=== PATIENT | male | born 1950 | race Caucasian/White ===

== ENCOUNTER 2017-10-09 13:06 | Emergency (ER) | payer MEDICARE ==
[2017-10-09 13:28] VITALS: BP 138/87; PULSE 87; RESP 20; TEMP 97.5
--- NOTE | 2017-10-09 13:42 | ED ---
Lower Extremity Injury HPI - General Chief Complaint: Extremity Injury, Lower Stated Complaint: fall, rt ankle injury Time Seen by Provider: 10/09/17 13:33 Source: patient, family, RN notes reviewed Mode of arrival: wheelchair Limitations: no limitations - History of Present Illness Initial Comments: This is a 67-year-old male who presents to the emergency department with chief complaint of right ankle injury. Patient is accompanied by family members who contribute to history as patient does have a speech issue. They state that they were at [employer] earlier this morning. Patient was trying to get onto a motorized cart in the parking lot and twisted his right ankle and fell down. Patient was able to get up off the ground on his own. He was able to bear weight at first but then when he returned home it became difficult to bear weight and ambulate on the right ankle. Patient denies any other injuries or trauma. He does normally use a walker to ambulate. Denies recent fevers or chills, chest pain or shortness of breath, abdominal pain, nausea or vomiting, headache or dizziness. - Related Data Home Medications Medication Instructions Recorded Confirmed Atorvastatin [Lipitor] 20 mg PO DAILY 06/18/15 06/19/15 Cinnamon Bark [Cinnamon] 500 mg PO DAILY 06/18/15 06/19/15 Paron-3 Fatty Acids/Fish Oil [Fish 1 cap PO DAILY 06/18/15 06/19/15 Oil 1,000 mg Softgel] Previous Rx's Medication Instructions Recorded Amoxic-Pot Clav 875-125Mg 1 tab PO Q12HR #14 tablet 06/22/15 [Augmentin 875-125] Allergies Allergy/AdvReac Type Severity Reaction Status Date / Time No Known Allergies Allergy Verified 10/09/17 13:23 Review of Systems ROS Statement: Those systems with pertinent positive or pertinent negative responses have been documented in the HPI. ROS Other: All systems not noted in ROS Statement are negative. 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), very mild strokes, possible mild [place] (unknown when) History of Any Multi-Drug Resistant Organisms: None Reported Past Surgical History: Heart Catheterization With Stent Additional Past Surgical History / Comment(s): Dr Kumar did stent approx 8 years ago Past Anesthesia/Blood Transfusion Reactions: No Reported Reaction Date of Last Stent Placement:: 2007 Past Psychological History: No Psychological Hx Reported Smoking Status: Never smoker Past Alcohol Use History: None Reported Past Drug Use History: None Reported - Past Family History Father Family Medical History: Unable to Obtain General Exam - General Exam Comments Initial Comments: General: Awake and alert, well-developed; in no apparent distress. HEENT: Head atraumatic, normocephalic. Pupils are equal, round and reactive to light. Extraocular movements intact. Oropharynx moist without erythema or exudate. Poor dentition throughout. Neck: Supple. Normal ROM. Cardiovascular: Regular rate and rhythm. No murmurs, rubs or gallops. Chest symmetrical. Respiratory: Lungs clear to auscultation bilaterally. No wheezes, rales or rhonchi. Normal respiratory effort with no use of accessory muscles. Musculoskeletal: Normal range of motion of the right ankle, however pain is elicited with plantar flexion. Tenderness on palpation at lateral ankle with mild soft tissue swelling. Sensation is intact. Pedal pulses are 2+ equal and palpable bilaterally. Skin: [place], warm and dry without rashes. Chronic hyperpigmentation noted to the right foot. Neurological: Alert and oriented x3. CN II-XII grossly intact. No focal neuro deficits. affect. No overt signs of depression or anxiety noted. Limitations: no limitations Course Vital Signs 10/09/17 13:23 Temperature 97.5 F L Pulse Rate 87 Respiratory 20 Rate Blood Pressure 138/87 O2 Sat by Pulse 94 L Oximetry Medical Decision Making - Medical Decision Making This is a 67-year-old male who presents to the emergency department with chief complaint of right ankle injury. There is tenderness and soft tissue swelling noted at the lateral right ankle. Patient admits to difficulty bearing weight and ambulating. X-ray of the right ankle was obtained and revealed no acute abnormalities. Patient likely suffering from an acute ankle sprain. Patient provided with a air cast. Tolerated well without complication. He is neurovascularly intact. Recommended continuing to use his walker and follow up with primary care provider. Patient will also be given contact information for orthopedics. They are in agreement with plan and voice understanding. All questions answered. Patient will be discharged home at this time. - Radiology Data Radiology results: report reviewed X-ray right ankle impression: There is no acute fracture or dislocation in the right ankle. Suspect remote injury. Disposition Clinical Impression: Ankle sprain and strain Disposition: HOME SELF-CARE Condition: Good Instructions: Ankle Sprain (ED) Additional Instructions: Please rest, ice, elevate and take Tylenol or Motrin as needed for pain. May follow up with Dr. Brewer, orthopedics if no improvement of symptoms. Please follow up with primary care provider within 1-2 days. Return to emergency department if symptoms should worsen or any concerns arise. Is patient prescribed a controlled substance at d/c from ED?: No Referrals: [facility],Clinic [Primary Care Provider] - 1-2 days Cristian Brewer MD [STAFF PHYSICIAN] - 1-2 days Time of Disposition: 14:19
--- NOTE | 2017-10-09 14:11 | XR ---
EXAMINATION TYPE: XR ankle complete RT DATE OF EXAM: 10/09/2017 CLINICAL HISTORY: Right ankle pain and swelling after twisting injury today. TECHNIQUE: Frontal, lateral and oblique images of the right ankle are obtained. COMPARISON: None. FINDINGS: There is no acute fracture/dislocation evident in the right ankle. There is well corticate d 9 mm fragment from the lateral malleolus felt to reflect old avulsion type fracture. There is spurr ing from lateral malleolus. There are small size superior and inferior calcaneal spurs. The ankle mor tise shows asymmetric medial narrowing suggesting probable ligamentous disruption likely chronic or o ld given additional chronic findings without soft tissue swelling. The overlying soft tissue appears unremarkable. IMPRESSION: There is no acute fracture or dislocation in the right ankle. Suspect remote injury.
== END 2017-10-09 14:30 | disposition home or self-care (01) ==
LOC: EC 13:06
DX: S93.401A Sprain of unspecified ligament of right ankle, initial encounter (principal); S96.911A Strain of unspecified muscle and tendon at ankle and foot level, right foot, initial encounter; Z86.73 Personal history of transient ischemic attack (TIA), and cerebral infarction without residual deficits; Z95.5 Presence of coronary angioplasty implant and graft; Z79.899 Other long term (current) drug therapy; X50.1XXA Overexertion from prolonged static or awkward postures, initial encounter; W18.39XA Other fall on same level, initial encounter; Y92.481 Parking lot as the place of occurrence of the external cause
CPT/HCPCS: 99283; 73610; L4350

== ENCOUNTER → 2018-11-30 | Outpatient (CLI) | payer OTHER | END | disposition home or self-care (01) | LOC: RADUSWWP 09:55 | DX: I73.9 Peripheral vascular disease, unspecified (principal); I25.10 Atherosclerotic heart disease of native coronary artery without angina pectoris; J44.9 Chronic obstructive pulmonary disease, unspecified; G93.9 Disorder of brain, unspecified; I10 Essential (primary) hypertension; E78.5 Hyperlipidemia, unspecified; R73.01 Impaired fasting glucose | CPT/HCPCS: 93922 ==

== ENCOUNTER 2018-12-21 16:43 | Emergency (ER) | payer OTHER ==
[2018-12-21] MEDS ORDERED: LORazepam 2 MG/ML INJ IV STA (16:58)
[2018-12-21 17:25] VITALS: RESP 18
[2018-12-21 17:27] LABS: Basophils % (A) 1 %; Eosinophils # (A) 0.3 k/uL (0-0.7); Eosinophils % (A) 4 %; HGB 14.9 gm/dL (13.0-17.5); Lymphocytes # (A) 1.2 k/uL (1.0-4.8); Lymphocytes % (A) 15 %; MCH 28.8 pg (25.0-35.0); MCHC 32.5 g/dL (31.0-37.0); MCV 88.5 fL (80.0-100.0); Mean Platelet Volume 7.7; Monocytes # (A) 0.4 k/uL (0-1.0); Monocytes % (A) 5 %; Neutrophils # (A) 5.9 k/uL (1.3-7.7); Neutrophils % (A) 73 %; Platelet Count 174 k/uL (150-450); RBC 5.19 m/uL (4.30-5.90); RDW 13.2 % (11.5-15.5)
[2018-12-21 17:35] LABS: African American GFR (CKD) >90 (>60 ml/min/1.73 sqM); Anion Gap 11 mmol/L; Blood Urea Nitrogen 22 mg/dL (9-20); Calcium 9.1 mg/dL (8.4-10.2); Carbon Dioxide 21 mmol/L (22-30); Chloride 110 mmol/L (98-107); Glucose 195 mg/dL (74-99); Potassium 4.1 mmol/L (3.5-5.1); Sodium 142 mmol/L (137-145)
[2018-12-21 17:40] LABS: Glucose,Whole Blood 188 mg/dL (75-99)
--- NOTE | 2018-12-21 18:52 | CT ---
EXAMINATION TYPE: CT brain wo con DATE OF EXAM: 12/21/2018 COMPARISON: None HISTORY: possible seizure CT DLP: 1217.4 mGycm Automated exposure control for dose reduction was used. FINDINGS: Multiple axial sections were obtained of the brain without contrast. There is cerebellar atrophy. There is no mass effect nor midline shift. There is no sign of intracran ial hemorrhage. Ventricles have normal size. Calvarium is intact. IMPRESSION: THERE IS MODERATE CEREBELLAR ATROPHY. NO ACUTE INTRACRANIAL ABNORMALITY.
[2018-12-21 19:29] LABS: Appearance,Urine Cloudy (Clear); Bilirubin,Urine Negative (Negative); Blood,Urine Negative (Negative); Color,Urine Yellow; Glucose,Urine (UA) 4+ (Negative); Hyaline Casts,Urine 15 /lpf (0-2); Ketones,Urine Negative (Negative); Leukocyte Esterase,Urine Large (Negative); Mucus,Urine Few /hpf; Nitrite,Urine Negative (Negative); PH, Urine 5.5 (5.0-8.0); Protein,Urine Trace (Negative); RBC,Urine 11 /hpf (0-5); Specific Gravity,Urine 1.023 (1.001-1.035); Urobilinogen,Urine <2.0 mg/dL (<2.0)
--- NOTE | 2018-12-21 20:15 | ED ---
Seizure HPI - General Chief Complaint: Seizure Stated Complaint: Seizure Source: patient, family Mode of arrival: EMS Limitations: altered mental status - History of Present Illness Initial Comments: The patient is a 68-year-old male with past medical history of OPCA who presents to the emergency department after he had seizure-like activity at home. The history are as reported by the patient's . She states the patient was outside riding his scooter. He then came in the house when she noted that his eyes rolled back in his head. He had full tonic-clonic jerking motions and was deviated to one side. He had an episode of incontinence. The patient did not bite his tongue. Seizure-like activity lasted for approximately 2-3 minutes. The patient wasn't post ictal. No previous seizure history in the past. called EMS. Upon EMS arrival he was alert and orientated times today which is the patient's baseline. The patient has previously seen a neurologist because of this OPCA however has not seen him in several years. The patient was initially refusing transfer but then agreed. He does arrive alert with no further seizure-like activity. He is denying any pain. He denies any headaches or visual changes. No unilateral numbness or weakness. He denies any chest pain, shortness of breath abdominal pain or changes in bowel or bladder habits. Denies any recent medication changes. No reported blunt head trauma. There are no other alleviating, precipitating or modifying factors - Related Data Home Medications Medication Instructions Recorded Confirmed Atorvastatin [Lipitor] 20 mg PO DAILY 06/18/15 12/21/18 Cinnamon Bark [Cinnamon] 500 mg PO DAILY 06/18/15 12/21/18 [place]hiss-3 Fatty Acids/Fish Oil [Fish 1 cap PO DAILY 06/18/15 12/21/18 Oil 1,000 mg Softgel] Cholecalciferol [Vitamin D3 (25 1,000 unit PO DAILY 12/21/18 12/21/18 Mcg = 1000 Iu)] Allergies Allergy/AdvReac Type Severity Reaction Status Date / Time No Known Allergies Allergy Verified 12/21/18 17:32 Review of Systems ROS Statement: Those systems with pertinent positive or pertinent negative responses have been documented in the HPI. ROS Other: All systems not noted in ROS Statement are negative. 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), very mild strokes, possible mild [place] (unknown when) History of Any Multi-Drug Resistant Organisms: None Reported Past Surgical History: Heart Catheterization With Stent Additional Past Surgical History / Comment(s): Dr Kumar did stent approx 8 years ago Past Anesthesia/Blood Transfusion Reactions: No Reported Reaction Date of Last Stent Placement:: 2007 Past Psychological History: No Psychological Hx Reported Smoking Status: Never smoker Past Alcohol Use History: None Reported Past Drug Use History: None Reported - Past Family History Father Family Medical History: Unable to Obtain General Exam Limitations: altered mental status Course Vital Signs 12/21/18 12/21/18 12/21/18 16:43 18:25 19:15 Temperature 98.4 F Pulse Rate 83 82 84 Respiratory 18 18 18 Rate Blood Pressure 120/75 120/75 128/87 O2 Sat by Pulse 95 98 97 Oximetry 12/21/18 12/21/18 19:36 20:25 Temperature 97.8 F 98 F Pulse Rate 80 75 Respiratory 18 18 Rate Blood Pressure 128/86 138/92 O2 Sat by Pulse 97 100 Oximetry Medical Decision Making - Medical Decision Making Upon arrival the patient was placed into room 18. He was hooked up to georgette nuous suction cardiac monitoring. A 12-lead EKG was performed which demonstrated normal sinus rhythm. I did recommend laboratory studies, urinalysis and a CT of the patient's brain. He was given 1 mg of Ativan IV. Upon return results are discussed with the patient is with at bedside. I did discuss diagnosis, differential and treatment options. I did indicate to them that I do believe the patient suffered a seizure at home as he did have tonic- clonic jerking motions, loss of bladder function and was post ictal. As of this I did recommend neurologic evaluation. Neurology coverage is not available at [facility] or [facility]. Did recommend transfer to [facility]. He refused hospital admission or transfer. He is capable of making his own decisions. He is of sound mind. His is at bedside and states that she cannot force him to receive medical care. The risks of leaving to include permanent disability and even . I informed him that there is a wider diagnoses been just new onset seizure. Patient understood and continued to refuse transfer. At this time the patient was discharged home and given follow-up information for neurologist. I did inform them of the importance of following up with neurology. I informed him that there is possibility he may need to be placed on antiseizure medication. The patient understood this. He was given written and verbal discharge instructions and discharged home in stable condition. - Lab Data Result diagrams: 12/21/18 17:15 12/21/18 17:15 Lab Results 12/21/18 12/21/18 12/21/18 Range/Units 17:15 17:15 17:15 WBC 8.0 (3.8-10.6) k/uL RBC 5.19 (4.30-5.90) m/uL Hgb 14.9 (13.0-17.5) gm/dL Hct 46.0 (39.0-53.0) % MCV 88.5 (80.0-100.0) fL MCH 28.8 (25.0-35.0) pg MCHC 32.5 (31.0-37.0) g/dL RDW 13.2 (11.5-15.5) % Plt Count 174 (150-450) k/uL Neutrophils % 73 % Lymphocytes % 15 % Monocytes % 5 % Eosinophils % 4 % Basophils % 1 % Neutrophils # 5.9 (1.3-7.7) k/uL Lymphocytes # 1.2 (1.0-4.8) k/uL Monocytes # 0.4 (0-1.0) k/uL Eosinophils # 0.3 (0-0.7) k/uL Basophils # 0.0 (0-0.2) k/uL Sodium 142 (137-145) mmol/L Potassium 4.1 (3.5-5.1) mmol/L Chloride 110 H (98-107) mmol/L Carbon Dioxide 21 L (22-30) mmol/L Anion Gap 11 mmol/L BUN 22 H (9-20) mg/dL Creatinine 0.97 (0.66-1.25) mg/dL Est GFR (CKD-EPI)AfAm >90 (>60 ml/min/1.73 sqM) Est GFR (CKD-EPI)NonAf 80 (>60 ml/min/1.73 sqM) Glucose 195 H (74-99) mg/dL POC Glucose (mg/dL) (75-99) mg/dL POC Glu Sales Clerk Supervisor ID Lactic Ac Sepsis Rflx Plasma Lactic Acid Garth 2.2 H* (0.7-2.0) mmol/L Calcium 9.1 (8.4-10.2) mg/dL Urine Color Urine Appearance (Clear) Urine pH (5.0-8.0) Ur Specific Parlin (1.001-1.035) Urine Protein (Negative) Urine Glucose (UA) (Negative) Urine Ketones (Negative) Urine Blood (Negative) Urine Nitrite (Negative) Urine Bilirubin (Negative) Urine Urobilinogen (<2.0) mg/dL Ur Leukocyte Esterase (Negative) Urine RBC (0-5) /hpf Urine WBC (0-5) /hpf Hyaline Casts (0-2) /lpf Urine Mucus (None) /hpf 12/21/18 12/21/18 12/21/18 Range/Units 17:37 17:40 19:00 WBC (3.8-10.6) k/uL RBC (4.30-5.90) m/uL Hgb (13.0-17.5) gm/dL Hct (39.0-53.0) % MCV (80.0-100.0) fL MCH (25.0-35.0) pg MCHC (31.0-37.0) g/dL RDW (11.5-15.5) % Plt Count (150-450) k/uL Neutrophils % % Lymphocytes % % Monocytes % % Eosinophils % % Basophils % % Neutrophils # (1.3-7.7) k/uL Lymphocytes # (1.0-4.8) k/uL Monocytes # (0-1.0) k/uL Eosinophils # (0-0.7) k/uL Basophils # (0-0.2) k/uL Sodium (137-145) mmol/L Potassium (3.5-5.1) mmol/L Chloride (98-107) mmol/L Carbon Dioxide (22-30) mmol/L Anion Gap mmol/L BUN (9-20) mg/dL Creatinine (0.66-1.25) mg/dL Est GFR (CKD-EPI)AfAm (>60 ml/min/1.73 sqM) Est GFR (CKD-EPI)NonAf (>60 ml/min/1.73 sqM) Glucose (74-99) mg/dL POC Glucose (mg/dL) 188 H (75-99) mg/dL POC Glu Sales Clerk Supervisor ID Cait Moffett Lactic Ac Sepsis Rflx Y Plasma Lactic Acid Garth (0.7-2.0) mmol/L Calcium (8.4-10.2) mg/dL Urine Color Yellow Urine Appearance Cloudy (Clear) Urine pH 5.5 (5.0-8.0) Ur Specific [place] 1.023 (1.001-1.035) Urine Protein Trace H (Negative) Urine Glucose (UA) 4+ H (Negative) Urine Ketones Negative (Negative) Urine Blood Negative (Negative) Urine Nitrite Negative (Negative) Urine Bilirubin Negative (Negative) Urine Urobilinogen <2.0 (<2.0) mg/dL Ur Leukocyte Esterase Large H (Negative) Urine RBC 11 H (0-5) /hpf Urine WBC 36 H (0-5) /hpf Hyaline Casts 15 H (0-2) /lpf Urine Mucus Few H (None) /hpf - EKG Data EKG Comments: EKG demonstrates a sinus rhythm with frequent PVCs. Ventricular rate of 83. OR interval 150. QRS V6. QTc 392. There are no acute ST segment elevations. The patient does have inverted T waves in leads 2, 3, V4 through V6. Disposition Clinical Impression: New onset seizure Disposition: HOME SELF-CARE Condition: Fair Instructions (If sedation given, give patient instructions): New-Onset Seizure in Adults (ED) Additional Instructions: I recommended hospital admission. Please return to the emergency room for any new or worsening symptoms. You will need to see a neurologist for further evaluation. Is patient prescribed a controlled substance at d/c from ED?: No Referrals: [facility],Clinic [Primary Care Provider] - 1-2 days Eric Sung MD [STAFF PHYSICIAN] - 1-2 days Time of Disposition: 20:14
[2018-12-21 20:26] VITALS: BP 138/92; PULSE 75; TEMP 98
== END 2018-12-21 20:42 | disposition home or self-care (01) ==
LOC: EC 16:43
DX: R56.9 Unspecified convulsions (principal); R41.82 Altered mental status, unspecified; I49.3 Ventricular premature depolarization; Z79.899 Other long term (current) drug therapy; Z86.73 Personal history of transient ischemic attack (TIA), and cerebral infarction without residual deficits; Z95.5 Presence of coronary angioplasty implant and graft
CPT/HCPCS: 36415; 93005; 80048; 83605; 85025; 81001; 87086; 70450; 99285; 96374; J2060; 99284

== ENCOUNTER 2018-12-23 15:37 | Inpatient (IN) | payer OTHER, MEDICARE ==
[2018-12-23] MEDS ORDERED: SODIUM CHLORIDE 0.9% 500 ML 500 ML IV STA (17:08)
[2018-12-23 17:27] LABS: Basophils % (A) 1 %; Eosinophils # (A) 0.4 k/uL (0-0.7); Eosinophils % (A) 6 %; HCT 46.7 % (39.0-53.0); HGB 15.4 gm/dL (13.0-17.5); Lymphocytes # (A) 0.9 k/uL (1.0-4.8); Lymphocytes % (A) 13 %; MCH 29.1 pg (25.0-35.0); Mean Platelet Volume 7.4; Monocytes # (A) 0.5 k/uL (0-1.0); Monocytes % (A) 8 %; Neutrophils # (A) 5.1 k/uL (1.3-7.7); Neutrophils % (A) 71 %; Platelet Count 172 k/uL (150-450); RDW 13.3 % (11.5-15.5); WBC 7.1 k/uL (3.8-10.6)
--- NOTE | 2018-12-23 17:45 | CT ---
EXAMINATION TYPE: CT brain wo con DATE OF EXAM: 12/23/2018 COMPARISON: 12/21/2018 HISTORY: Syncope. CT DLP: 1214.4 mGycm Automated exposure control for dose reduction was used. FINDINGS: There is mild cerebral atrophy. There is no mass effect nor midline shift. There is no sign of intrac ranial hemorrhage. The calvarium is intact. IMPRESSION: MILD ATROPHY. NO ACUTE INTRACRANIAL ABNORMALITY. NO CHANGE.
[2018-12-23 17:46] LABS: D-Dimer 0.35 mg/L FEU (<0.60); INR 0.9 (<1.2); Partial Thromboplastin Time 24.7 sec (22.0-30.0); Prothrombin Time 9.7 sec (9.0-12.0)
--- NOTE | 2018-12-23 17:48 | XR ---
EXAMINATION TYPE: XR chest 2V DATE OF EXAM: 12/23/2018 COMPARISON: NONE HISTORY: Syncope TECHNIQUE: Frontal and lateral views of the chest are obtained. FINDINGS: There is no heart failure nor confluent pneumonic infiltrate. Heart and mediastinum are no rmal. Bony thorax is intact. Diaphragm is normal. IMPRESSION: Normal chest
[2018-12-23 17:49] LABS: ALT 21 U/L (21-72); AST 21 U/L (17-59); African American GFR (CKD) >90 (>60 ml/min/1.73 sqM); Albumin 4.6 g/dL (3.5-5.0); Alkaline Phosphatase 101 U/L (38-126); Anion Gap 11 mmol/L; Blood Urea Nitrogen 17 mg/dL (9-20); Carbon Dioxide 25 mmol/L (22-30); Chloride 105 mmol/L (98-107); Glucose 102 mg/dL (74-99); Sodium 141 mmol/L (137-145); Total Bilirubin 0.7 mg/dL (0.2-1.3); Total Protein 7.3 g/dL (6.3-8.2)
[2018-12-23 19:13] LABS: Appearance,Urine Clear (Clear); Bilirubin,Urine Negative (Negative); Blood,Urine Negative (Negative); Color,Urine Yellow; Glucose,Urine (UA) Negative (Negative); Ketones,Urine Negative (Negative); Leukocyte Esterase,Urine Negative (Negative); Nitrite,Urine Negative (Negative); PH, Urine 5.5 (5.0-8.0); Protein,Urine Negative (Negative); Specific Gravity,Urine 1.023 (1.001-1.035); Urobilinogen,Urine <2.0 mg/dL (<2.0)
[2018-12-23] MEDS ORDERED: IPRATROPIUM-ALBUTEROL 3 ML NEB INHALATION STA (19:13)
[2018-12-23] MEDS ORDERED: NALOXONE 0.4 MG/ML 1 ML VIAL IV PRN (19:46)
--- NOTE | 2018-12-23 19:46 | ED ---
Syncope HPI - General Chief Complaint: Syncope Stated Complaint: Syncope Time Seen by Provider: 12/23/18 16:26 Source: patient, family Mode of arrival: wheelchair Limitations: no limitations - History of Present Illness Initial Comments: The patient is a 68-year-old male with past medical history of OPCA who presents emergency Department with reported episode of syncope at home. The patient was just recently seen in the emergency department on Monday. That time the patient had new onset seizure-like activity. The patient refused transfer to a facility with neurology coverage and left the hospital against medical recommendation. Reportedly today the patient had 2 syncopal episodes at home. The first was witnessed by the patient's . She states that they were sitting outside on the porch the patient went unresponsive and his scooter. She states she was only out for several seconds. There is no seizure-like activity and the patient did not bite his tongue. There is no loss of bowel or bladder incontinence. The patient had no post ictal phase. He then went into the house. Within 15 minutes of the first episode the patient ended up having a second episode of syncope that was witnessed by his son. He suffered no trauma from the syncopal episode as he slumped over in his chair. The patient's is alert at this time. He is denying any headaches or visual changes. Denies any chest pain or shortness of breath. No history of syncope. Denies any back pain or flank pain. No changes in his bowel or bladder habits. Does admit to feeling foggy at this time. He denies any abdominal pain. No unilateral numbness or weakness . There are no other alleviating, precipitating or modifying factors - Related Data Home Medications Medication Instructions Recorded Confirmed Atorvastatin [Lipitor] 20 mg PO DAILY 06/18/15 12/23/18 Ferguson-3 Fatty Acids/Fish Oil [Fish 1 cap PO DAILY 06/18/15 12/23/18 Oil 1,000 mg Softgel] Cholecalciferol [Vitamin D3 (25 1,000 unit PO DAILY 12/21/18 12/23/18 Mcg = 1000 Iu)] Cinnamon 100mg 100 mg PO DAILY 12/23/18 12/23/18 Allergies Allergy/AdvReac Type Severity Reaction Status Date / Time No Known Allergies Allergy Verified 12/23/18 17:15 Review of Systems ROS Statement: Those systems with pertinent positive or pertinent negative responses have been documented in the HPI. ROS Other: All systems not noted in ROS Statement are negative. 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), very mild strokes, possible mild [place] (unknown when) History of Any Multi-Drug Resistant Organisms: None Reported Past Surgical History: Heart Catheterization With Stent Additional Past Surgical History / Comment(s): Dr Kumar did stent approx 8 years ago Past Anesthesia/Blood Transfusion Reactions: No Reported Reaction Date of Last Stent Placement:: 2007 Past Psychological History: No Psychological Hx Reported Smoking Status: Never smoker Past Alcohol Use History: None Reported Past Drug Use History: None Reported - Past Family History Father Family Medical History: Unable to Obtain General Exam Limitations: no limitations General appearance: alert, in no apparent distress Head exam: Present: atraumatic, normocephalic, normal inspection Eye exam: Present: normal appearance, PERRL, EOMI. Absent: scleral icterus, conjunctival injection, periorbital swelling ENT exam: Present: normal exam, mucous membranes moist Neck exam: Present: normal inspection. Absent: tenderness, meningismus, lymphadenopathy Respiratory exam: Present: normal lung sounds bilaterally. Absent: respiratory distress, wheezes, rales, rhonchi, stridor Cardiovascular Exam: Present: regular rate, normal rhythm, normal heart sounds. Absent: systolic murmur, diastolic murmur, rubs, gallop, clicks GI/Abdominal exam: Present: soft, normal bowel sounds. Absent: distended, tenderness, guarding, rebound, rigid Extremities exam: Present: normal inspection, full ROM, normal capillary refill. Absent: tenderness, pedal edema, joint swelling, calf tenderness Back exam: Present: normal inspection Neurological exam: Present: alert, oriented X3, CN II-XII intact Psychiatric exam: Present: normal affect, normal mood Skin exam: Present: warm, dry, intact, normal color. Absent: rash Course Vital Signs 12/23/18 12/23/18 12/23/18 16:04 18:39 19:36 Temperature 98.3 F Pulse Rate 85 85 85 Respiratory 16 18 Rate Blood Pressure 137/85 144/92 O2 Sat by Pulse 95 95 Oximetry 12/23/18 12/23/18 12/23/18 19:46 22:30 23:00 Temperature Pulse Rate 87 87 84 Respiratory 16 16 Rate Blood Pressure 125/73 124/78 O2 Sat by Pulse 97 97 Oximetry 12/24/18 12/24/18 01:00 02:00 Temperature Pulse Rate 83 85 Respiratory 20 20 Rate Blood Pressure 125/78 129/79 O2 Sat by Pulse 97 97 Oximetry EKG Findings - EKG Comments: EKG Findings:: EKG demonstrates a normal sinus rhythm with a ventricular rate of 88. OH interval 120. QRS is 68. QTC 353. There is mild ST depression in lead 3. There are no acute ST segment elevations for ischemic changes. Medical Decision Making - Medical Decision Making The patient is placed into room 6. He is hooked up to continuous pulse ox and hospital laboratory technician. A 12-lead EKG is performed and the patient which demonstrates no acute signs of ischemia. Laboratory studies were conducted. I did send the patient over for CT of his brain due to his reported confusion. I also performed a chest x-ray. Upon return results I did discuss with the patient is family at bedside. I once again recommended admission to the hospital for which the patient did agree. He was admitted to the [facility] hospitalist group. Call discuss case with . She did accept admission of the patient. I will place Dr. Hull on consult. The patient remained on telemetry monitoring. He was reevaluated and had no further syncopal episodes. He currently awaiting transport to the floor - Lab Data Result diagrams: 12/23/18 16:52 12/23/18 16:52 Lab Results 12/23/18 12/23/18 12/23/18 Range/Units 16:52 16:52 16:52 WBC 7.1 (3.8-10.6) k/uL RBC 5.30 (4.30-5.90) m/uL Hgb 15.4 (13.0-17.5) gm/dL Hct 46.7 (39.0-53.0) % MCV 88.0 (80.0-100.0) fL MCH 29.1 (25.0-35.0) pg MCHC 33.0 (31.0-37.0) g/dL RDW 13.3 (11.5-15.5) % Plt Count 172 (150-450) k/uL Neutrophils % 71 % Lymphocytes % 13 % Monocytes % 8 % Eosinophils % 6 % Basophils % 1 % Neutrophils # 5.1 (1.3-7.7) k/uL Lymphocytes # 0.9 L (1.0-4.8) k/uL Monocytes # 0.5 (0-1.0) k/uL Eosinophils # 0.4 (0-0.7) k/uL Basophils # 0.0 (0-0.2) k/uL PT 9.7 (9.0-12.0) sec INR 0.9 (<1.2) APTT 24.7 (22.0-30.0) sec D-Dimer 0.35 (<0.60) mg/L FEU Sodium 141 (137-145) mmol/L Potassium 4.0 (3.5-5.1) mmol/L Chloride 105 (98-107) mmol/L Carbon Dioxide 25 (22-30) mmol/L Anion Gap 11 mmol/L BUN 17 (9-20) mg/dL Creatinine 0.84 (0.66-1.25) mg/dL Est GFR (CKD-EPI)AfAm >90 (>60 ml/min/1.73 sqM) Est GFR (CKD-EPI)NonAf 89 (>60 ml/min/1.73 sqM) Glucose 102 H (74-99) mg/dL Plasma Lactic Acid Garth (0.7-2.0) mmol/L Calcium 10.0 (8.4-10.2) mg/dL Total Bilirubin 0.7 (0.2-1.3) mg/dL AST 21 (17-59) U/L ALT 21 (21-72) U/L Alkaline Phosphatase 101 (38-126) U/L Troponin I (0.000-0.034) ng/mL Total Protein 7.3 (6.3-8.2) g/dL Albumin 4.6 (3.5-5.0) g/dL Urine Color Urine Appearance (Clear) Urine pH (5.0-8.0) Ur Specific [place] (1.001-1.035) Urine Protein (Negative) Urine Glucose (UA) (Negative) Urine Ketones (Negative) Urine Blood (Negative) Urine Nitrite (Negative) Urine Bilirubin (Negative) Urine Urobilinogen (<2.0) mg/dL Ur Leukocyte Esterase (Negative) 12/23/18 12/23/1819 Range/Units 16:52 16:52 18:30 WBC (3.8-10.6) k/uL RBC (4.30-5.90) m/uL Hgb (13.0-17.5) gm/dL Hct (39.0-53.0) % MCV (80.0-100.0) fL MCH (25.0-35.0) pg MCHC (31.0-37.0) g/dL RDW (11.5-15.5) % Plt Count (150-450) k/uL Neutrophils % % Lymphocytes % % Monocytes % % Eosinophils % % Basophils % % Neutrophils # (1.3-7.7) k/uL Lymphocytes # (1.0-4.8) k/uL Monocytes # (0-1.0) k/uL Eosinophils # (0-0.7) k/uL Basophils # (0-0.2) k/uL PT (9.0-12.0) sec INR (<1.2) APTT (22.0-30.0) sec D-Dimer (<0.60) mg/L FEU Sodium (137-145) mmol/L Potassium (3.5-5.1) mmol/L Chloride (98-107) mmol/L Carbon Dioxide (22-30) mmol/L Anion Gap mmol/L BUN (9-20) mg/dL Creatinine (0.66-1.25) mg/dL Est GFR (CKD-EPI)AfAm (>60 ml/min/1.73 sqM) Est GFR (CKD-EPI)NonAf (>60 ml/min/1.73 sqM) Glucose (74-99) mg/dL Plasma Lactic Acid Garth 1.1 (0.7-2.0) mmol/L Calcium (8.4-10.2) mg/dL Total Bilirubin (0.2-1.3) mg/dL AST (17-59) U/L ALT (21-72) U/L Alkaline Phosphatase (38-126) U/L Troponin I <0.012 (0.000-0.034) ng/mL Total Protein (6.3-8.2) g/dL Albumin (3.5-5.0) g/dL Urine Color Yellow Urine Appearance Clear (Clear) Urine pH 5.5 (5.0-8.0) Ur Specific [place] 1.023 (1.001-1.035) Urine Protein Negative (Negative) Urine Glucose (UA) Negative (Negative) Urine Ketones Negative (Negative) Urine Blood Negative (Negative) Urine Nitrite Negative (Negative) Urine Bilirubin Negative (Negative) Urine Urobilinogen <2.0 (<2.0) mg/dL Ur Leukocyte Esterase Negative (Negative) Disposition Clinical Impression: Syncope, Cerebellar atrophy Disposition: ADMITTED IP TO THIS HOSP Condition: Stable Is patient prescribed a controlled substance at d/c from ED?: No Decision to Admit Reason: Admit from EC Decision Date: 12/23/18 Decision Time: 19:46
[2018-12-23 22:27] LABS: Glucose,Whole Blood 114 mg/dL (75-99)
[2018-12-24] MEDS ORDERED: IPRATROPIUM-ALBUTEROL 3 ML NEB INHALATION PRN (00:38)
[2018-12-24 05:44] LABS: Basophils % (A) 0 %; Eosinophils # (A) 0.4 k/uL (0-0.7); Eosinophils % (A) 5 %; HCT 44.1 % (39.0-53.0); HGB 14.7 gm/dL (13.0-17.5); Lymphocytes # (A) 0.8 k/uL (1.0-4.8); Lymphocytes % (A) 11 %; MCH 29.6 pg (25.0-35.0); MCHC 33.3 g/dL (31.0-37.0); MCV 88.9 fL (80.0-100.0); Mean Platelet Volume 8.2; Monocytes # (A) 0.6 k/uL (0-1.0); Monocytes % (A) 8 %; Neutrophils # (A) 5.8 k/uL (1.3-7.7); Neutrophils % (A) 76 %; Platelet Count 152 k/uL (150-450); RBC 4.96 m/uL (4.30-5.90); RDW 13.4 % (11.5-15.5); WBC 7.7 k/uL (3.8-10.6)
[2018-12-24 05:51] LABS: African American GFR (CKD) >90 (>60 ml/min/1.73 sqM); Anion Gap 11 mmol/L; Blood Urea Nitrogen 17 mg/dL (9-20); Calcium 9.1 mg/dL (8.4-10.2); Carbon Dioxide 23 mmol/L (22-30); Chloride 104 mmol/L (98-107); Glucose 108 mg/dL (74-99); Sodium 138 mmol/L (137-145)
--- NOTE | 2018-12-24 07:01 | HP ---
HISTORY AND PHYSICAL DATE OF SERVICE: 12/23/2018 CHIEF COMPLAINT: Syncope. HISTORY OF PRESENT ILLNESS: This 68-year-old gentleman with a past medical history of multiple medical problems including history of asthma, CVA, TIA, history of DJD, history of OPCA, history of CAD, stent being followed by Dr. Stringer in the [facility], apparently had sustained an episode of syncope. The possibility of seizure disorder also suspected and the patient was taken to [facility] and admitted for further evaluation and treatment. The patient has significant respiratory difficulties also. The CT scan of the brain showed mild atrophy, otherwise the chest x-ray showed normal findings and the patient admitted for further evaluation and treatment. There is no history of any fever, rigors. No headache, loss of consciousness or seizures at this time. PAST MEDICAL HISTORY: History of asthma, history of CVA, history of DJD, history of OPCA, history of CAD, stent. MEDICATIONS: Medications prior to admission include home medications are: 1. House-3 fatty acids, fish oil. 2. Cinnamon daily. 3. Vitamin D3, 1000 daily. 4. Lipitor 20 mg daily. ALLERGIES: Allergies are none. FAMILY HISTORY: Unable to obtain. SOCIAL HISTORY: No history of smoking. No history of alcohol intake. REVIEW OF SYSTEMS: ENT: Diminished hearing and diminished vision. CARDIOVASCULAR SYSTEM: No angina. RESPIRATORY SYSTEM: As mentioned earlier. GI: No nausea. : No dysuria. NERVOUS SYSTEM: As mentioned earlier. ALLERGY/IMMUNOLOGY: As mentioned earlier. HEMATOLOGY/ONCOLOGY: No history of anemia. ENDOCRINE: No history of diabetes or hypothyroidism. CONSTITUTIONAL: As mentioned earlier. DERMATOLOGY: Negative. RHEUMATOLOGY: Negative. PSYCHIATRY: As mentioned earlier. PHYSICAL EXAMINATION: The patient is alert and oriented x3. Pulse 87, blood pressure 125/73, respirations 16, temperature is normal, pulse ox 97% on room air. HEENT: Conjunctivae normal. Oral mucosa moist. NECK: No jugular venous distention. No carotid bruit. No lymph node enlargement. CARDIOVASCULAR: S1, S2 muffled. No S3, no S4. RESPIRATORY: Breath sounds diminished at the bases. Bilateral scattered rhonchi and crackles. ABDOMEN: Soft, nontender. No mass palpable. LEGS: No edema, no swelling. NERVOUS SYSTEM: Higher function as mentioned earlier. Moves all 4 limbs. Mild diffuse weakness. LYMPHATICS: No lymphadenopathy of the neck, axillae or groin. SKIN: No ulcer, rash or bleeding. JOINTS: No active deforming arthropathy. LABS: Labs are at this time shows WBC 7.1, hemoglobin 15.4. Glucose 102. ASSESSMENT: 1. Syncope for evaluation, rule out seizures. 2. Possible chronic obstructive pulmonary disease or chronic bronchitis. 3. History of asthma. 4. History of cerebrovascular accident, transient ischemic attack. 5. History of degenerative joint disease. 6. History of OPCA. 7. History of mild strokes. 8. History of coronary artery disease, stent. 9. FULL CODE. RECOMMENDATIONS AND DISCUSSION: This 68-year-old gentleman presented with multiple complex medical issues. I would recommend to continue the current medications, continue symptomatic treatment. I would optimize bronchodilator treatment. Otherwise, neurology consultation will be obtained to rule out the possibility of seizure. Home medications will be resumed. Guarded prognosis. DVT prophylaxis. Incentive spirometry. Guarded prognosis because of multiple complex medical issues. Further recommendations to follow A copy of dictation forwarded to Dr. Stringer who is the primary physician. MMODL / IJN: [id number] /
[2018-12-24] MEDS: IPRATROPIUM-ALBUTEROL 3 ML NEB INHALATION SCH ×3 (08:28→19:44)
[2018-12-24] MEDS: HEPARIN SODIUM,PORCINE 5,000 UNIT/ML 1 ML VIAL SQ SCH ×2 (08:46→21:07)
[2018-12-24] MEDS: PANTOPRAZOLE 40 MG TABLET PO SCH (08:46)
[2018-12-24] MEDS: ATORVASTATIN 20 MG TAB PO SCH (08:46)
--- NOTE | 2018-12-24 09:15 | P.CNNES ---
History of Present Illness Consult date: 12/24/18 Requesting physician: Irais Napier Reason for Consult: Seizure-like activity Chief complaint: "I passed out" History of Present Illness: 68 RH male here because of several episodes of passing out. The first one occurred a few days ago. Patient was in his scooter when the noticed he was slumped over, unresponsive with his eyes rolled backwards with some shaking. There was no specific head deviation, tongue/inner cheek biting, bowel/bladder incontinence or post-ictal confusion. 15 minutes after the above, he had a 2nd episode witnessed by his son. Both episodes lasted seconds. Patient denies h/o head/neck trauma, CVA or prior h/o seizure disorder, though it was mentioned in his admission H&P that he did have issues with CVA/TIA in the past. According to patient, he is followed at the [facility] where he was reportedly told his cerebellum is deteriorating that has affect his speech and walking. He does have a stated h/o of OPCA. He did not have any warning prior to losing consciousness such as CP, SOB, N/V, abdominal pain, tunnel or blurred/double vision, tremors, aura, prodrome, dizziness or any other accompanying focal neuro c/o. Review of Systems I have performed a 14-point organ ROS with patient that are negative except as per HPI. 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), very mild strokes, possible mild [place] (unknown when) History of Any Multi-Drug Resistant Organisms: None Reported Past Surgical History: Heart Catheterization With Stent Additional Past Surgical History / Comment(s): Dr Kumar did stent approx 8 years ago Past Anesthesia/Blood Transfusion Reactions: No Reported Reaction Date of Last Stent Placement:: 2007 Past Psychological History: No Psychological Hx Reported Smoking Status: Never smoker Past Alcohol Use History: None Reported Past Drug Use History: None Reported - Past Family History Father Family Medical History: Unable to Obtain Medications and Allergies Home Medications Medication Instructions Recorded Confirmed Type Atorvastatin [Lipitor] 20 mg PO DAILY 06/18/15 12/23/18 History Fonda-3 Fatty Acids/Fish Oil [Fish 1 cap PO DAILY 06/18/15 12/23/18 History Oil 1,000 mg Softgel] Cholecalciferol [Vitamin D3 (25 1,000 unit PO DAILY 12/21/18 12/23/18 History Mcg = 1000 Iu)] Cinnamon 100mg 100 mg PO DAILY 12/23/18 12/23/18 History Allergies Allergy/AdvReac Type Severity Reaction Status Date / Time No Known Allergies Allergy Verified 12/23/18 17:15 Physical Examination - Vital Signs Vital Signs: Vital Signs Temp Pulse Pulse Resp BP BP Pulse Ox 12/24/18 07:31 98.4 F 89 19 139/86 96 12/24/18 07:04 97.8 F 91 20 120/73 97 12/24/18 06:00 84 18 139/86 96 12/24/18 05:00 99 18 124/74 97 12/24/18 04:00 90 20 119/79 97 12/24/18 02:00 85 20 129/79 97 12/24/18 01:00 83 20 125/78 97 12/23/18 23:00 84 16 124/78 97 12/23/18 22:30 87 16 125/73 97 12/23/18 19:46 87 12/23/18 19:36 85 12/23/18 18:39 85 18 144/92 95 12/23/18 16:04 98.3 F 85 16 137/85 95 Intake and Output 12/23/18 12/24/18 12/24/18 22:59 06:59 14:59 Other: Weight 90.718 kg Gen NAD Pleasant and cooperative HEENT NCAT Sclera without icterus O/P clear Neck Supple No carotid bruit Cor RRR no m/r/g Lungs CTAB Abd Soft NTND +BS Ext Warm to touch No edema Neuro MS A+Ox4 Hesitant speech but able to communicate overall Able to follow all commands CN PERRL VFF no APD EOMI no nystagmus or DANYA No facial asymmetry Masseter's symmetric Hearing diminished to normal voice bilaterally Speech dysarthric Equal elevation of palate Tongue midline Sym shrug and SCM bilaterally Motor Normal bulk/tone No pronator or tremors Strength 5/5 sym throughout Sens Intact to LT x4 No neglect or extinction Coord Some dysmetria on FTN bilaterally DTRs 2+/4 sym throughout Toes downgoing bilaterally No clonus at achilles Gait Deferred Results - Laboratory Findings CBC and BMP: 12/24/18 05:29 07/22/19 05:29 Abnormal Lab Findings: Abnormal Labs 12/23/18 12/23/18 12/23/18 16:52 16:52 22:25 Lymphocytes # 0.9 L Glucose 102 H POC Glucose (mg/dL) 114 H 12/24/18 12/24/18 05:29 05:29 Lymphocytes # 0.8 L Glucose 108 H POC Glucose (mg/dL) - Diagnostic Findings Additional findings: CT Head wo cont 12/23/18. Mild global atrophy. No ICH. Nil acute. I have reviewed neuroimages myself. Assessment and Plan Assessment: Recurrent episodes of syncope with seizure-like activity. From history, not many convincing classic stigmata associated with epileptic seizure. May be case of convulsive syncope. Plan: -Sleep/wake EEG today -CTA Head/Neck to assess posterior circulation -Fall/seizure precautions -Consult PT given patient's history of OPCA -Other medical work-up for syncope deferred to primary team/internal medicine -d/w patient. All questions answered. Thank you for this consultation. Please call with ?. Time with Patient: Greater than 30 (Time spent in direct patient care, greater than 50% of which was spent in [id number] counseling and coordination of care: 70 minutes.)
--- NOTE | 2018-12-24 13:55 | EEG ---
ELECTROENCEPHALOGRAM REPORT: DATE OF TESTIN12/24/2018 CLINICAL HISTORY: Recurrent syncopal episodes with seizure-like activity. EEG was ordered to rule out epileptiform discharges. MEDICATIONS: Pantoprazole, atorvastatin, albuterol, Tylenol, heparin subcutaneous. TYPE OF RECORDING: Bedside tracing using the 10-20 international electrode placement system. No sedation was given prior to the beginning of this recording. FINDINGS: At the beginning of this recording, there is a posterior symmetric alpha rhythm between 8-9 hertz that attenuates on eye opening and returns upon eye closure. There are scattered eye blink artifacts as well as EMG artifacts primarily seen in the bifrontal area. Photic stimulation elicits a symmetric driving response. Hyperventilation is not performed in this recording. There is no sleep architecture seen. There is no background asymmetry, ictal or interictal patterns appreciated. IMPRESSION: This is a normal awake electroencephalogram without background asymmetry or epileptiform discharges. Clinical correlation is advised. KESHA / DMITRYN: [id number] / LUISA
--- NOTE | 2018-12-24 14:49 | PN ---
PROGRESS NOTE DATE OF SERVICE: 12/24/2018 HISTORY OF PRESENT ILLNESS: This is a 68-year-old gentleman who was admitted with syncope, is being evaluated for possible seizure disorder. The patient apparently had 3 episodes of passing out. The first episode was coming back from outside after walking in the sun. Apparently, otherwise the patient also had 2 other episodes of falling and passing out while the patient is sitting. Neurology has seen the patient and coordinated the patient. Patient is receiving breathing treatment for the bronchitis. PAST MEDICAL HISTORY: Reviewed. REVIEW OF SYSTEMS: CARDIOVASCULAR SYSTEM: No angina. RESPIRATION: As mentioned earlier. GI: As mentioned earlier. : No dysuria. NERVOUS SYSTEM: As mentioned earlier. CURRENT MEDICATIONS ARE REVIEWED INCLUDE: 1. Tylenol p.r.n. 2. DuoNeb q.i.d. and p.r.n. 3. Lipitor 20 mg. 4. Rocephin 1 g daily. 5. Heparin. 6. Narcan. 7. Protonix. PHYSICAL EXAM: Patient is alert, oriented x2. Pulse 61, blood pressure 116/75, respiration 18, temperature 97.2, pulse ox 98% on room air. HEENT: Conjunctivae normal. CARDIOVASCULAR: S1, S2, muffled. RESPIRATION: Breath sounds diminished at the bases, a few scattered rhonchi. Expiratory wheezing also present. ABDOMEN: Soft nontender. LEGS: No edema. No swelling. NERVOUS SYSTEM: No focal deficits. LABS: CBC within normal limits. Sodium 130, potassium 4. ASSESSMENT: 1. Syncope, recurrent for evaluation, rule out seizures, possibly vasovagal syncope. 2. Possible asthma acute exacerbation with acute purulent tracheobronchitis, rule out aspiration. 3. History of cerebrovascular accident, transient ischemic attack. 4. History of degenerative joint disease. 5. History of OPCA. 6. History of mild strokes. 7. History of coronary artery disease, stent. 8. FULL CODE. RECOMMENDATION: recommend to continue current medications, continue to monitor and symptomatic treatment. At this time, I recommend continue the bronchodilators. EEG has been ordered. Neurology input appreciated. CAT scan reviewed. The prognosis guarded. Continue with remote telemetry as well. Prognosis guarded, which I discussed at length with the family at the bedside. Further recommendations to follow. Will also obtain seizure precautions also and continue with neuro checks. Further recommendations as well. PT, OT also will be evaluated. MMODL / IJN: [id number] /
[2018-12-25] MEDS: IPRATROPIUM-ALBUTEROL 3 ML NEB INHALATION SCH ×3 (08:12→19:28)
--- NOTE | 2018-12-25 08:34 | CT ---
EXAMINATION TYPE: CT angio head neck DATE OF EXAM: 12/24/2018 COMPARISON: CT brain 12/23/2018 HISTORY: 68-year-old male Convulsive syncope TECHNIQUE: Contiguous axial scanning of the head and neck performed with IV Contrast, patient injecte d with 50 mL of Isovue 370. Coronal/sagittal MIP reconstructions performed. 3-D reconstructions gener ated on a dedicated independent workstation. CT DLP: 363 mGycm Automated exposure control for dose reduction was used. FINDINGS: NECK: Conventional arch vessel branching anatomy. Brachiocephalic artery, right common, and right internal carotid arteries are patent. The left common and internal carotid arteries are widely patent. Vertebral arteries are codominant and patent throughout their course though uniformly small in calibe r. Moderate mucosal thickening ethmoid air cells. Mild to moderate spondylotic change mid to lower cervi haven spine. HEAD: Diminutive V4 segment vertebral arteries as well as basilar artery. There seem to be persistent origins of the posterior communicating arteries with hypoplastic P1 segments. The internal carotid arteries are patent. A1 segment right anterior cerebral artery is slightly hypoplastic. No aneurysmal change is seen. IMPRESSION: NECK: 1. NO HEMODYNAMICALLY SIGNIFICANT STENOSIS OF THE CAROTID OR VERTEBRAL ARTERIES ON EITHER SIDE. HEAD: 1. DIMINUTIVE VERTEBRAL AND BASILAR ARTERIES. CORRELATE FOR ANY CHRONIC SYMPTOMS OF VERTEBROBASILAR I NSUFFICIENCY. 2. OTHERWISE, NO LARGE VESSEL INTRACRANIAL ARTERIAL OCCLUSION OR ANEURYSMAL CHANGE IS SEEN.
[2018-12-25] MEDS: HEPARIN SODIUM,PORCINE 5,000 UNIT/ML 1 ML VIAL SQ SCH ×2 (08:59→20:25)
[2018-12-25] MEDS: ACETAMINOPHEN TAB 500 MG TAB PO PRN (08:59)
[2018-12-25] MEDS: PANTOPRAZOLE 40 MG TABLET PO SCH (09:00)
[2018-12-25] MEDS: ATORVASTATIN 20 MG TAB PO SCH (09:00)
--- NOTE | 2018-12-25 10:08 | P.PN ---
Subjective Progress Note Date: 12/25/18 Principal diagnosis: Syncope OPCA No events O/N. CTA. EEG. No recurrent syncope or new neuro c/o. Objective - Vital Signs Vital signs: Vital Signs Temp 98.3 F 12/25/18 05:00 Pulse 94 12/25/18 08:22 Resp 18 12/25/18 08:00 BP 120/73 12/25/18 05:00 Pulse Ox 98 12/25/18 05:00 Intake & Output 12/24/18 12/25/18 12/25/18 18:59 06:59 18:59 Other: Voiding Method Diaper Urinal Urinal Diaper Diaper # Voids 2 2 - Exam Gen NAD Pleasant and cooperative MS A+Ox4 Hesitant speech but able to communicate overall Able to follow all commands CN PERRL VFF no APD EOMI no nystagmus or DANYA No facial asymmetry Masseter's symmetric Hearing diminished to normal voice bilaterally Speech dysarthric Equal elevation of palate Tongue midline Sym shrug and SCM bilaterally Motor Normal bulk/tone No pronator or tremors Strength 5/5 sym throughout Sens Intact to LT x4 No neglect Coord Some dysmetria on FTN bilaterally DTRs 2+/4 sym throughout Toes downgoing bilaterally No clonus at achilles Gait Deferred - Labs CBC & Chem 7: 12/24/18 05:29 12/24/18 05:29 - Imaging and Cardiology EEG 12/24/18. Normal awake. No EPD. CTA Head/Neck 12/24/18. No LVO or stenosis. Diminutive but patent intracranial basilar and vertebral arteries. I have reviewed neuroimages myself. Assessment and Plan Assessment: Recurrent episodes of syncope with seizure-like activity. From history, not many convincing classic stigmata associated with epileptic seizure. Presentation more c/w convulsive syncope. Diminutive but patent intracranial vertebrobasilar system. Maybe part of OPCA. Plan: -Sleep/wake EEG unrevealing -CTA Head/Neck shows no LVO or stenosis. Diminutive but patent intracranial poterior circulation -Avoid hypotension -No AED indicated at this point -Fall/seizure precautions -Consult PT given patient's history of OPCA -Other medical work-up for syncope deferred to primary team/internal medicine -d/w patient. All questions answered. -No further neuro recs at this time. Fine to discharge from neuro standpoint. Please call with new ?. Thank you again for this consultation. Time with Patient: Less than 30 (Time spent in direct patient care, greater than 50% of which was spent in [id number] counseling and coordination of care: 25 minutes.)
[2018-12-25] MEDS: ASPIRIN 81 MG PO SCH (13:22)
--- NOTE | 2018-12-25 13:34 | P.CRDCN ---
History of Present Illness History of present illness: This is a pleasant 68-year-old male past medical history significant for coronary artery disease status post stent placement, dyslipidemia and atrophy of the cerebellum. Most information is obtained from the and son who are at the bedside. Apparently on Monday he has been sitting outside indicate and upon coming in the house he sat in front of the window unit air conditioner was attempting to cool off. While he was in there he started twitching all over his body and ultimately slumped forward losing consciousness briefly. The states she walked over and was able to push him backwards his eyes rolled back in his head he continued with generalized twitching and then shortly thereafter less than 20 seconds later he opens his eyes. She thinks he may have urinated on himself or he had been so diaphoretic that it appeared that way. He came to the emergency department for evaluation and ultimately decided to go home declining transfer for neurology evaluation. Over the course of the next couple of days he had 2 separate episodes of passing out. These times were not associated with any twitching or convulsion type activity. There were no clear cut symptoms of dizziness, palpitations, nausea, vomiting, chest pain or shortness of breath associated with these episodes. He also has been coughing, bringing up yellow/green sputum. Currently being treated with IV antibiotics. EKG reveals sinus mechanism with mild non-specific ST abnormalities noted in the inferior/lateral leads. Chronic compared to old EKG from 2016. No records in the office. Chest x-ray is negative for acute cardiopulmonary process. Brain CT reveals mild atrophy with no acute intracranial abnormality. Normal awake EEG without background asymmetry or epileptiform discharges. CT angio of the head and neck reveals no significant stenosis of bilateral carotid arteries, chronic vertebral and basilar arteries diminutive in no large vessel intracranial arterial occlusion or aneurysm noted. Laboratory data reviewed, WBC 7.7, hemoglobin 14.7, platelets 152, d-dimer 0.35, sodium 1, potassium 4, creatinine 0.92, troponin negative 3. Daily cardiac medications include atorvastatin 20 mg daily. At the time of my exam: CONSTITUTIONAL: Denies fever. Denies chills. EYES: Denies blurred vision. Denies vision changes. Denies eye pain. EARS, NOSE, MOUTH & THROAT: Denies headache. Denies sore throat. Denies ear pain. CARDIOVASCULAR: Complains of pleuritic chest pain. Denies shortness of breath. Denies orthopnea. Denies PND. Denies palpitations. RESPIRATORY: Complains of productive cough. GASTROINTESTINAL: Denies abdominal pain. Denies diarrhea. Denies constipation. Denies nausea. Denies vomiting. MUSCULOSKELETAL: Denies myalgias. INTEGUMENTARY: Denies pruitis. Denies rash. NEUROLOGIC: Denies numbness. Denies tingling. Denies weakness. PSYCHIATRIC: Denies anxiety. Denies depression. ENDOCRINE: Denies fatigue. Denies weight change. Denies polydipsia. Denies polyurina. GENITOURINARY: Denies burning, hematuria or urgency with micturation. HEMATOLOGIC: Denies history of anemia. Denies bleeding. Blood pressure 122/72 heart rate 88 afebrile maintaining oxygen saturation on room air GENERAL: This is a 68-year-old male in no apparent distress at the time of my examination. Hard of hearing. HEENT: Head is atraumatic, normocephalic. Pupils are equal, round. Sclerae anicteric. Conjunctivae are clear. Mucous membranes of the mouth are moist. Neck is supple. There is no jugular venous distention. No carotid bruit is heard. LUNGS: Course rhonchi scattered throughout, faint expiratory wheezes. No rales. No chest wall tenderness is noted on palpation. Discomfort noted with cough. HEART: Regular rate and rhythm without murmurs, rubs or gallops. S1 and S2 heard . ABDOMEN: Soft, nontender. Bowel sounds are heard. No organomegaly noted. EXTREMITIES: No evidence of peripheral edema and no calf tenderness noted. VASCULAR: Radial and dorsalis pedis pulses palpated, no evidence of clubbing. NEUROLOGIC: Patient is awake, alert and oriented, mild confusion regarding her current situation. ASSESSMENT Syncopal episode associated with convulsions and altered mental status. Neurology is following. Symptoms more likely related to chronic neurologic disorder with no evidence to suggest cardiac origin. Tracheobronchitis Cerebellum atrophy disorder Coronary artery disease s/p stent placement, exact details unavailable. states was approximately 8-[address] Naranjo. Dyslipidemia PLAN Initiate on aspirin daily secondary to his history of stent placement in the past. Obtain 2D echocardiogram and doppler study to assess cardiac structure and f unction. Ongoing telemetry monitoring for another 24 hours to rule out an arrhythmia. Thank you kindly for this consultation. Nurse Practitioner note has been reviewed, I agree with a documented findings and plan of care. Patient was seen and examined. 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), very mild strokes, possible mild DE (unknown when) History of Any Multi-Drug Resistant Organisms: None Reported Past Surgical History: Heart Catheterization With Stent Additional Past Surgical History / Comment(s): Dr Kumar did stent approx 8 years ago Past Anesthesia/Blood Transfusion Reactions: No Reported Reaction Date of Last Stent Placement:: 2007 Past Psychological History: No Psychological Hx Reported Smoking Status: Never smoker Past Alcohol Use History: None Reported Past Drug Use History: None Reported - Past Family History Father Family Medical History: Unable to Obtain Medications and Allergies Home Medications Medication Instructions Recorded Confirmed Type Atorvastatin [Lipitor] 20 mg PO DAILY 06/18/15 12/23/18 History [place]-3 Fatty Acids/Fish Oil [Fish 1 cap PO DAILY 06/18/15 12/23/18 History Oil 1,000 mg Softgel] Cholecalciferol [Vitamin D3 (25 1,000 unit PO DAILY 12/21/18 12/23/18 History Mcg = 1000 Iu)] Cinnamon 100mg 100 mg PO DAILY 12/23/18 12/23/18 History Allergies Allergy/AdvReac Type Severity Reaction Status Date / Time No Known Allergies Allergy Verified 12/23/18 17:15 Physical Exam Vitals: Vital Signs Temp Pulse Pulse Pulse Resp BP Pulse Ox 12/25/18 11:10 97.6 F 88 17 122/72 92 L 12/25/18 08:22 94 12/25/18 08:12 94 12/25/18 08:00 18 12/25/18 05:00 98.3 F 95 18 120/73 98 12/24/18 23:05 92 18 12/24/18 21:00 98.1 F 92 18 136/79 94 L 12/24/18 19:57 86 12/24/18 19:46 86 12/24/18 12:29 86 12/24/18 12:16 80 12/24/18 12:15 97.9 F 61 18 116/74 96 Intake and Output 12/24/18 12/25/18 12/25/18 22:59 06:59 14:59 Other: Voiding Method Diaper Urinal Urinal Diaper Diaper # Voids 1 2 Results 12/24/18 05:29 12/24/18 05:29 Current Medications Generic Name Dose Route Start Last Admin Trade Name Freq PRN Reason Stop Dose Admin Acetaminophen 500 mg 12/24/18 00:38 12/25/18 08:59 Tylenol Tab PO 500 mg Q6HR PRN Administration Fever and/ or Pain Albuterol/Ipratropium 3 ml 12/24/18 08:00 12/25/18 08:12 Duoneb 0.5 Mg-3 Mg/3 Ml Soln INHALATION 3 ml RT-TID INDER Administration Albuterol/Ipratropium 3 ml 12/24/18 00:38 Duoneb 0.5 Mg-3 Mg/3 Ml Soln INHALATION RT-TID PRN Shortness Of Breath Or Wheezing Atorvastatin Calcium 20 mg 12/24/18 09:00 12/25/18 09:00 Lipitor PO 20 mg DAILY INDER Administration Heparin Sodium (Porcine) 5,000 unit 12/24/18 09:00 12/25/18 08:59 Heparin SQ 5,000 unit Q12HR INDER Administration Ceftriaxone Sodium 1 gm/ 50 mls @ 100 mls/hr 12/24/18 09:00 12/25/18 07:13 Sodium Chloride IVPB 100 mls/hr Q24HR INDER Administration Naloxone HCl 0.2 mg 12/23/18 19:46 Narcan IV Q2M PRN Opioid Reversal Pantoprazole Sodium 40 mg 12/24/18 07:30 12/25/18 09:00 Protonix PO 40 mg [id number] INDER Administration Intake and Output 12/24/18 12/25/18 12/25/18 22:59 06:59 14:59 Other: Voiding Method Diaper Urinal Urinal Diaper Diaper # Voids 1 2 12/24/18 05:29 12/24/18 05:29
--- NOTE | 2018-12-25 17:35 | PN ---
PROGRESS NOTE DATE OF SERVICE: 12/25/2018 This 68-year-old gentleman who was admitted with syncope also had significant asthma, acute exacerbation. Neurology is following the patient closely. The patient is on bronchodilators and antibiotics. No chest pain. No palpitations. No fever. On exam, alert and oriented x3. Pulse 88, blood pressure 122/72, respirations 17, temperature 97.6, pulse ox 92% on room air. HEENT: Conjunctivae normal. NECK: No jugular venous distention. CARDIOVASCULAR SYSTEM: S1, S2 muffled. RESPIRATORY SYSTEM: Breath sounds diminished at the bases. A few scattered rhonchi and crackles. ABDOMEN: Soft, non-tender. LEGS: No edema. No swelling. NERVOUS SYSTEM: No focal deficit. LABS: CBC within normal limits. Sodium 138, potassium 4. ASSESSMENT: 1. Syncope, recurrent, for evaluation. Seizure unlikely. Rule out vasovagal syncope. Rule out cardiac arrhythmia. 2. Possible asthma, acute exacerbation, with acute purulent tracheobronchitis. 3. History of cerebrovascular accident, transient ischemic attack. 4. History of degenerative joint disease. 5. History of OPCA. 6. History of mild strokes. 7. History of coronary artery disease, stent. 8. FULL CODE. RECOMMENDATIONS AND DISCUSSION: I recommend to continue current medications, continue with the monitoring, symptomatic treatment. Cardiology has been consulted. Two-D echo has been ordered. Will continue to monitor. Continue the telemetry. Guarded prognosis. Further recommendations to follow. MMODL / IJN: [id number] /
--- NOTE | 2018-12-25 18:44 | ECHOF ---
Referral Reason:syncope MEASUREMENTS -------- HEIGHT: 175.3 cm WEIGHT: 90.7 kg BP: 122/72 RVIDd: 3.2 cm (< 3.3) IVSd: 1.4 cm (0.6 - 1.1) LVIDd: 3.6 cm (3.9 - 5.3) LVPWd: 1.5 cm (0.6 - 1.1) IVSs: 2.1 cm LVIDs: 2.4 cm LVPWs: 1.7 cm LAESV Index (A-L): 17.26 ml/m Ao Diam: 3.5 cm (2.0 - 3.7) AV Cusp: 2.0 cm (1.5 - 2.6) LA Diam: 3.3 cm (2.7 - 3.8) MV EXCURSION: 12.495 mm (> 18.000) MV EF SLOPE: 68 mm/s (70 - 150) EPSS: 1.6 cm MV E Reji: 0.61 m/s MV DecT: 257 ms MV A Reji: 0.85 m/s MV E/A Ratio: 0.72 RAP: 5.00 mmHg RVSP: 15.61 mmHg FINDINGS -------- Sinus rhythm. This was a technically difficult study with suboptimal views. There is moderate concentric left ventricular hypertrophy. Overall left ventricular systolic functi on is low-normal with, an EF between 50 - 55 %. The diastolic filling pattern indicates impaired re laxation 10.39. The RV was not well visualized. Normal LA size by volume 22+/-6 ml/m2. The right atrium was not well visualized. 5.0mg of Lumason was utilized for enhancement of images Interatrial and interventricular septum intact. The aortic valve is trileaflet and appears structurally normal. There is no evidence of aortic regu rgitation. There is no evidence of aortic stenosis. There is trace to mild mitral regurgitation. Trace tricuspid regurgitation present. There is no evidence of pulmonary hypertension. The right ventricular systolic pressure, as measured by Doppler, is 15.61mmHg. There is no pulmonic regurgitation present. The aortic root size is normal. IVC Not well visulized. There is no pericardial effusion. CONCLUSIONS -------- 1. Sinus rhythm. 2. This was a technically difficult study with suboptimal views. 3. There is moderate concentric left ventricular hypertrophy. 4. Overall left ventricular systolic function is low-normal with, an EF between 50 - 55 %. 5. The diastolic filling pattern indicates impaired relaxation 10.39.. 6. The RV was not well visualized. 7. Normal LA size by volume 22+/-6 ml/m2. 8. The right atrium was not well visualized. 9. 5.0mg of Lumason was utilized for enhancement of images 10. Interatrial and interventricular septum intact. 11. The aortic valve is trileaflet and appears structurally normal. 12. There is no evidence of aortic regurgitation. 13. There is no evidence of aortic stenosis. 14. There is trace to mild mitral regurgitation. 15. Trace tricuspid regurgitation present. 16. There is no evidence of pulmonary hypertension. 17. The right ventricular systolic pressure, as measured by Doppler, is 15.61mmHg. 18. There is no pulmonic regurgitation present. 19. The aortic root size is normal. 20. IVC Not well visulized. 21. There is no pericardial effusion. FIELD COIL WINDER: Carolyn Al RDCS
[2018-12-26] MEDS: HEPARIN SODIUM,PORCINE 5,000 UNIT/ML 1 ML VIAL SQ SCH (08:18)
[2018-12-26] MEDS: ASPIRIN 81 MG PO SCH (08:19)
[2018-12-26] MEDS: PANTOPRAZOLE 40 MG TABLET PO SCH (08:19)
[2018-12-26] MEDS: ATORVASTATIN 20 MG TAB PO SCH (08:20)
[2018-12-26] MEDS: ACETAMINOPHEN TAB 500 MG TAB PO PRN (08:21)
[2018-12-26] MEDS: IPRATROPIUM-ALBUTEROL 3 ML NEB INHALATION SCH ×2 (08:35→12:58)
--- NOTE | 2018-12-26 11:50 | P.PN ---
Subjective This is a pleasant 68-year-old male past medical history significant for coronary artery disease status post stent placement, dyslipidemia and atrophy of the cerebellum. Most information is obtained from the and son who are at the bedside. Apparently on Monday he has been sitting outside indicate and upon coming in the house he sat in front of the window unit air conditioner was attempting to cool off. While he was in there he started twitching all over his body and ultimately slumped forward losing consciousness briefly. The states she walked over and was able to push him backwards his eyes rolled back in his head he continued with generalized twitching and then shortly thereafter less than 20 seconds later he opens his eyes. She thinks he may have urinated on himself or he had been so diaphoretic that it appeared that way. He came to the emergency department for evaluation and ultimately decided to go home declining transfer for neurology evaluation. Over the course of the next couple of days he had 2 separate episodes of passing out. These times were not associated with any twitching or convulsion type activity. There were no clear cut symptoms of dizziness, palpitations, nausea, vomiting, chest pain or shortness of breath associated with these episodes. He also has been coughing, bringing up yellow/green sputum. Currently being treated with IV antibiotics. EKG reveals sinus mechanism with mild non-specific ST abnormalities noted in the inferior/lateral leads. Chronic compared to old EKG from 2016. No records in the office. Chest x-ray is negative for acute cardiopulmonary process. Brain CT reveals mild atrophy with no acute intracranial abnormality. Normal awake EEG without background asymmetry or epileptiform discharges. CT angio of the head and neck reveals no significant stenosis of bilateral carotid arteries, chronic vertebral and basilar arteries diminutive in no large vessel intracranial arterial occlusion or aneurysm noted. Laboratory data reviewed, WBC 7.7, hemoglobin 14.7, platelets 152, d-dimer 0.35, sodium 1, potassium 4, creatinine 0.92, troponin negative 3. Daily cardiac medications include atorvastatin 20 mg daily. 12/26/2018 Pt is seen and examined resting comfortably in bed. Plan is for discharge home today with the family. Telemetry tracing reviewed and are unremarkable for an acute arrhythmia. Intermittent PVC's noted. Blood pressure 130/88 heart rate 88 afebrile and maintaining oxygen saturation on room air. Echocardiogram obtained reveals preserved LV sytolic function with EF 50-55%. GENERAL: This is a 68-year-old male in no apparent distress at the time of my examination. Hard of hearing. HEENT: Head is atraumatic, normocephalic. Pupils are equal, round. Sclerae anicteric. Conjunctivae are clear. Mucous membranes of the mouth are moist. Neck is supple. There is no jugular venous distention. No carotid bruit is heard. LUNGS: Scattered rhonchi throughout, faint expiratory wheezes. No rales. No chest wall tenderness is noted on palpation. HEART: Regular rate and rhythm without murmurs, rubs or gallops. S1 and S2 heard. EXTREMITIES: No evidence of peripheral edema and no calf tenderness noted. ASSESSMENT Syncopal episode associated with convulsions and altered mental status. Neurology is following. Symptoms more likely related to chronic neurologic disorder with no evidence to suggest cardiac origin. Tracheobronchitis Cerebellum atrophy disorder Coronary artery disease s/p stent placement, exact details unavailable. states was approximately 8-[address] Naranjo. Dyslipidemia PLAN Stable from a cardiac perspective. No evidence to suggest cardiac cause of syncope. Ongoing neurological evaluations. We will follow as needed. Nurse Practitioner note has been reviewed, I agree with a documented findings and plan of care. Patient was seen and examined. Objective - Vital Signs Vital signs: Vital Signs Temp 97.5 F L 12/26/18 04:30 Pulse 88 12/26/18 08:45 Resp 18 12/26/18 04:30 BP 130/88 12/26/18 04:30 Pulse Ox 96 12/26/18 04:30 Intake & Output 12/25/18 12/26/18 12/26/18 18:59 06:59 18:59 Intake Total 240 Balance 240 Intake: Oral 240 Other: Voiding Method Urinal Urinal Urinal Diaper Diaper Diaper # Voids 3 1 - Labs CBC & Chem 7: 12/24/18 05:29 12/24/18 05:29
[2018-12-26 12:20] VITALS: BP 132/82; PULSE 90; RESP 16; TEMP 97.3
--- NOTE | 2018-12-26 18:40 | DS ---
DISCHARGE SUMMARY FINAL DIAGNOSES: 1. Syncope for evaluation, possible vasovagal, possibly convulsive syncope per Neurologic. 2. Asthma, acute exacerbation with acute purulent tracheobronchitis. 3. History of cerebrovascular accident, transient ischemic attack. 4. History of degenerative joint disease. 6. History of mild strokes. 7. History of coronary artery disease, stent. 8. FULL CODE. DISCHARGE DISPOSITION: The patient will be discharged in stable condition with guarded prognosis. HISTORY OF PRESENT ILLNESS: This 68-year-old gentleman with a past medical history of multiple medical problems as mentioned earlier, was admitted with features of syncope. Neurology and cardiology saw the patient. Medications adjusted. The patient improved significantly. Patient will be discharged in stable condition with guarded prognosis. Patient also had bronchospasm which was treated with bronchodilators and antibiotics. Neurology recommend outpatient followup. Cardiology saw the patient also. Please refer to the Neurology and Cardiology notes for further information. On exam, vitals are stable. Cardio system: Abdomen soft. Nervous system: Unchanged. DISCHARGE ADVICE AND MEDICATIONS: 1. Diet is cardiac diet. 2. Activity limited until followup. 3. Follow up with [facility] in 2-3 days. 4. Follow with Neurology and Cardiology as recommended. DISCHARGE MEDICATIONS: 1. Cinnamon 100 mg p.o. daily. 2. Fish oil 1 p.o. daily. 3. Lipitor 20 mg p.o. daily. 4. Vitamin D3 1000 units p.o. daily. 5. Ceftin 500 mg daily for 3 days. 6. ProAir 2 puffs q.6h. KESHA / DMITRYN: [id number] / LUISA
== END 2018-12-26 14:25 | disposition home or self-care (01) | DRG 202 ==
LOC: EC 15:37 → 3NMEDONC 19:49 → OBSVTOIN 12-25 15:15
PROVIDERS: ADMIT Internal Medicine; ATTEND Internal Medicine
DX: J20.9 Acute bronchitis, unspecified (principal); J45.901 Unspecified asthma with (acute) exacerbation; G23.8 Other specified degenerative diseases of basal ganglia; R55 Syncope and collapse; Z79.899 Other long term (current) drug therapy; Z86.73 Personal history of transient ischemic attack (TIA), and cerebral infarction without residual deficits; M19.90 Unspecified osteoarthritis, unspecified site; I25.10 Atherosclerotic heart disease of native coronary artery without angina pectoris; Z95.5 Presence of coronary angioplasty implant and graft; H91.90 Unspecified hearing loss, unspecified ear; E78.5 Hyperlipidemia, unspecified; I49.3 Ventricular premature depolarization; R29.6 Repeated falls
CPT/HCPCS: 36415; 70450; 70496; 70498; 71046; 80048; 80053; 81003; 83605; 84484; 85025; 85379; 85610; 85730; 93005; 93306; 94640; 95816; 96360; 99285

== ENCOUNTER 2019-02-16 09:10 | Emergency (ER) | payer OTHER, MEDICARE ==
[2019-02-16 09:18] VITALS: TEMP 97.7
[2019-02-16] MEDS ORDERED: methylPREDNISolone SOD SUCCI 125 MG/2 ML VIAL IV STA (09:35)
[2019-02-16] MEDS ORDERED: SODIUM CHLORIDE 0.9% 1,000 ML IV STA (09:35)
[2019-02-16] MEDS ORDERED: IPRATROPIUM-ALBUTEROL 3 ML NEB INHALATION STA (09:35)
--- NOTE | 2019-02-16 09:40 | ED ---
SOB HPI - General Chief Complaint: Shortness of Breath Stated Complaint: SOB, rash Time Seen by Provider: 02/16/19 09:21 Source: patient, RN notes reviewed, old records reviewed Mode of arrival: ambulatory Limitations: no limitations - History of Present Illness Initial Comments: Patient is a 68-year-old male presents emergency department today for evaluation for a diffusE rash developed a breathing 3 days. Patient reports that treated in January for wheezing and likely COPD exacerbation and placed on his inhaler and steroids. He finished steroids. He states that for the past 2 weeks has had a pruritic rash over his legs groin chest and arms. Patient reportedly has had no fevers or chills. He's had a worsening cough with productivity over the past few days.is extremely hard of hearing and has difficult time verbalizing his knees, family is given most of the history. Patient's family reports that putting hydrocortisone cream over the wrist. No history of sick contacts and they have not developed a rash. No exposures to family is aware of. Patient denies any recent fever, chills, shortness of breath, chest pain, back pain, abdominal pain, nausea vomiting, numbness or tingling, dysuria or hematuria, constipation or diarrhea, headaches or visual changes, or any other current symptoms - Related Data Home Medications Medication Instructions Recorded Confirmed Atorvastatin [Lipitor] 20 mg PO HS 06/18/15 02/16/19 Cholecalciferol [Vitamin D3 (25 1,000 unit PO HS 12/21/18 02/16/19 Mcg = 1000 Iu)] Cinnamon Bark [Cinnamon] 500 mg PO HS 02/16/19 02/16/19 Vitamin E (Dl,Tocopheryl Acet) 400 unit PO HS 02/16/19 02/16/19 [Vitamin E] Previous Rx's Medication Instructions Recorded Doxycycline [Vibramycin] 100 mg PO BID #14 cap 02/16/19 Mupirocin 2% Oint [Bactroban 2% 1 applic TOPICAL TID #60 gm 02/16/19 Oint] predniSONE 50 mg PO DAILY #5 tablet 02/16/19 Allergies Allergy/AdvReac Type Severity Reaction Status Date / Time No Known Allergies Allergy Verified 02/16/19 10:33 Review of Systems ROS Statement: Those systems with pertinent positive or pertinent negative responses have been documented in the HPI. ROS Other: All systems not noted in ROS Statement are negative. 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), very mild strokes, possible mild [place] (unknown when) History of Any Multi-Drug Resistant Organisms: None Reported Past Surgical History: Heart Catheterization With Stent Additional Past Surgical History / Comment(s): Dr Kumar did stent approx 8 year s ago Past Anesthesia/Blood Transfusion Reactions: No Reported Reaction Date of Last Stent Placement:: 2007 Past Psychological History: No Psychological Hx Reported Smoking Status: Never smoker Past Alcohol Use History: None Reported Past Drug Use History: None Reported - Past Family History Father Family Medical History: Unable to Obtain General Exam - General Exam Comments Initial Comments: 68-year-old male. Alert and oriented. No distress. Limitations: no limitations General appearance: alert Head exam: Present: atraumatic, normocephalic, normal inspection Eye exam: Present: normal appearance, PERRL, EOMI. Absent: scleral icterus, conjunctival injection, periorbital swelling ENT exam: Present: normal exam, mucous membranes moist Neck exam: Present: normal inspection. Absent: tenderness, meningismus, lymphadenopathy Respiratory exam: Present: wheezes. Absent: normal lung sounds bilaterally, respiratory distress, rales, rhonchi, stridor Cardiovascular Exam: Present: regular rate, normal rhythm, normal heart sounds. Absent: systolic murmur, diastolic murmur, rubs, gallop, clicks GI/Abdominal exam: Present: soft, normal bowel sounds. Absent: distended, tenderness, guarding, rebound, rigid Extremities exam: Present: normal inspection, full ROM, normal capillary refill. Absent: tenderness, pedal edema, joint swelling, calf tenderness Back exam: Present: normal inspection Neurological exam: Present: alert, oriented X3, CN II-XII intact Psychiatric exam: Present: normal affect, normal mood Skin exam: Present: warm, rash (papular erythematous prurutic rash over thighs, groin, abdomen and arms. ) Course Vital Signs 02/16/19 02/16/19 02/16/19 09:13 10:02 10:20 Temperature 97.7 F Pulse Rate 68 88 92 Respiratory 18 Rate Blood Pressure 152/100 O2 Sat by Pulse 99 Oximetry 02/16/19 12:28 Temperature Pulse Rate 77 Respiratory 16 Rate Blood Pressure 133/82 O2 Sat by Pulse Oximetry Medical Decision Making - Medical Decision Making 68-year-old male presents emergency received with complaints of cough congestion as well as pruritic rash over his body. Patient's rash and CVAs likely a contact dermatitis. Wrist by his abdomen and arm. They deny any exposure. Patient has been using steroid cream. Discussed he continues to this as well as we'll put the Patient on oral steroids. He was given doses of steroids IV. He also complains some wheezing and Congestion. Patient chest x-ray was reviewed and negative for any acute changes. Blood work was reviewed and unremarkable. This I will put the Patient on steroids for comfort for the rash and for bronchitis as well as put the Patient with doxycycline for atypical bacteria. All questions answered return parameters were discussed. - Lab Data Result diagrams: 02/16/19 10:10 02/16/19 10:10 Lab Results 02/16/19 02/16/19 02/16/19 Range/Units 10:10 10:10 10:10 WBC 7.0 (3.8-10.6) k/uL RBC 5.34 (4.30-5.90) m/uL Hgb 16.0 (13.0-17.5) gm/dL Hct 47.6 (39.0-53.0) % MCV 89.1 (80.0-100.0) fL MCH 29.9 (25.0-35.0) pg MCHC 33.6 (31.0-37.0) g/dL RDW 15.7 H (11.5-15.5) % Plt Count 191 (150-450) k/uL Neutrophils % 59 % Lymphocytes % 21 % Monocytes % 8 % Eosinophils % 8 % Basophils % 1 % Neutrophils # 4.1 (1.3-7.7) k/uL Lymphocytes # 1.5 (1.0-4.8) k/uL Monocytes # 0.6 (0-1.0) k/uL Eosinophils # 0.5 (0-0.7) k/uL Basophils # 0.1 (0-0.2) k/uL PT 10.1 (9.0-12.0) sec INR 0.9 (<1.2) APTT 23.4 (22.0-30.0) sec Sodium 139 (137-145) mmol/L Potassium 4.1 (3.5-5.1) mmol/L Chloride 107 (98-107) mmol/L Carbon Dioxide 19 L (22-30) mmol/L Anion Gap 13 mmol/L BUN 20 (9-20) mg/dL Creatinine 0.98 (0.66-1.25) mg/dL Est GFR (CKD-EPI)AfAm >90 (>60 ml/min/1.73 sqM) Est GFR (CKD-EPI)NonAf 79 (>60 ml/min/1.73 sqM) Glucose 111 H (74-99) mg/dL Calcium 9.6 (8.4-10.2) mg/dL Magnesium 2.1 (1.6-2.3) mg/dL Total Bilirubin 0.9 (0.2-1.3) mg/dL AST 20 (17-59) U/L ALT 18 L (21-72) U/L Alkaline Phosphatase 89 (38-126) U/L Troponin I (0.000-0.034) ng/mL Total Protein 7.4 (6.3-8.2) g/dL Albumin 4.3 (3.5-5.0) g/dL 02/16/19 Range/Units 10:10 WBC (3.8-10.6) k/uL RBC (4.30-5.90) m/uL Hgb (13.0-17.5) gm/dL Hct (39.0-53.0) % MCV (80.0-100.0) fL MCH (25.0-35.0) pg MCHC (31.0-37.0) g/dL RDW (11.5-15.5) % Plt Count (150-450) k/uL Neutrophils % % Lymphocytes % % Monocytes % % Eosinophils % % Basophils % % Neutrophils # (1.3-7.7) k/uL Lymphocytes # (1.0-4.8) k/uL Monocytes # (0-1.0) k/uL Eosinophils # (0-0.7) k/uL Basophils # (0-0.2) k/uL PT (9.0-12.0) sec INR (<1.2) APTT (22.0-30.0) sec Sodium (137-145) mmol/L Potassium (3.5-5.1) mmol/L Chloride (98-107) mmol/L Carbon Dioxide (22-30) mmol/L Anion Gap mmol/L BUN (9-20) mg/dL Creatinine (0.66-1.25) mg/dL Est GFR (CKD-EPI)AfAm (>60 ml/min/1.73 sqM) Est GFR (CKD-EPI)NonAf (>60 ml/min/1.73 sqM) Glucose (74-99) mg/dL Calcium (8.4-10.2) mg/dL Magnesium (1.6-2.3) mg/dL Total Bilirubin (0.2-1.3) mg/dL AST (17-59) U/L ALT (21-72) U/L Alkaline Phosphatase (38-126) U/L Troponin I <0.012 (0.000-0.034) ng/mL Total Protein (6.3-8.2) g/dL Albumin (3.5-5.0) g/dL 02/16/19 10:17 EKG shows normal sinus rhythm with frequent PVCs nonspecific T-wave abnormality. Abnormal EKG noted. Ventricular rate of 84 bpm. Intervals 142 ms. QS duration is 70 ms. QT QTc is 3:30/392 ms. - Radiology Data Radiology results: report reviewed Chest x-ray is negative for any acute intrathoracic abnormality. Disposition Clinical Impression: Wheezing, Rash Disposition: HOME SELF-CARE Condition: Good Instructions (If sedation given, give patient instructions): Acute Bronchitis (ED) Additional Instructions: Please use medication as discussed. Please follow up with family doctor if symptoms have not improved over the next two days. Please return to the emergency room if your symptoms increase or worsen or for any other concerns. [place] should avoid any new exposures to new detergents or other lotions. Take the steroids starting tomorrow. Prescriptions: Mupirocin 2% Oint [Bactroban 2% Oint] 1 applic TOPICAL TID #60 gm predniSONE 50 mg PO DAILY #5 tablet Doxycycline [Vibramycin] 100 mg PO BID #14 cap Is patient prescribed a controlled substance at d/c from ED?: No Referrals: [facility],Clinic [Primary Care Provider] - 1-2 days Time of Disposition: 12:11
[2019-02-16 10:31] LABS: Basophils # (A) 0.1 k/uL (0-0.2); Basophils % (A) 1 %; Eosinophils # (A) 0.5 k/uL (0-0.7); Eosinophils % (A) 8 %; HCT 47.6 % (39.0-53.0); Lymphocytes # (A) 1.5 k/uL (1.0-4.8); Lymphocytes % (A) 21 %; MCH 29.9 pg (25.0-35.0); MCHC 33.6 g/dL (31.0-37.0); MCV 89.1 fL (80.0-100.0); Mean Platelet Volume 8.2; Monocytes # (A) 0.6 k/uL (0-1.0); Monocytes % (A) 8 %; Neutrophils # (A) 4.1 k/uL (1.3-7.7); Neutrophils % (A) 59 %; Platelet Count 191 k/uL (150-450); RBC 5.34 m/uL (4.30-5.90); RDW 15.7 % (11.5-15.5)
[2019-02-16 10:42] LABS: INR 0.9 (<1.2); Partial Thromboplastin Time 23.4 sec (22.0-30.0); Prothrombin Time 10.1 sec (9.0-12.0)
--- NOTE | 2019-02-16 10:48 | XR ---
EXAMINATION TYPE: XR chest 2V DATE OF EXAM: 02/16/2019 HISTORY: difficulty breathing. REFERENCE: Previous study dated 12/23/2018. FINDINGS: The lungs remain clear. Pleural space are clear. Heart size upper limits of normal. Note is made of a dextroscoliosis. IMPRESSION: NO ACUTE INTRATHORACIC ABNORMALITY.
[2019-02-16] MEDS ORDERED: diphenhydrAMINE 50 MG/ML 1 ML VIAL IVP STA (10:58)
[2019-02-16 10:59] LABS: ALT 18 U/L (21-72); AST 20 U/L (17-59); African American GFR (CKD) >90 (>60 ml/min/1.73 sqM); Albumin 4.3 g/dL (3.5-5.0); Alkaline Phosphatase 89 U/L (38-126); Anion Gap 13 mmol/L; Blood Urea Nitrogen 20 mg/dL (9-20); Calcium 9.6 mg/dL (8.4-10.2); Carbon Dioxide 19 mmol/L (22-30); Chloride 107 mmol/L (98-107); Glucose 111 mg/dL (74-99); Magnesium 2.1 mg/dL (1.6-2.3); Non-African American GFR(CKD) 79 (>60 ml/min/1.73 sqM); Potassium 4.1 mmol/L (3.5-5.1); Sodium 139 mmol/L (137-145); Total Bilirubin 0.9 mg/dL (0.2-1.3); Total Protein 7.4 g/dL (6.3-8.2)
[2019-02-16 12:30] VITALS: BP 133/82; PULSE 77; RESP 16
== END 2019-02-16 12:28 | disposition home or self-care (01) ==
LOC: EC 09:10
DX: R06.2 Wheezing (principal); R21 Rash and other nonspecific skin eruption; R05 Cough; R09.89 Other specified symptoms and signs involving the circulatory and respiratory systems; H91.90 Unspecified hearing loss, unspecified ear; J45.909 Unspecified asthma, uncomplicated; Z79.899 Other long term (current) drug therapy; Z86.73 Personal history of transient ischemic attack (TIA), and cerebral infarction without residual deficits
CPT/HCPCS: 36415; 94640; 93005; 80053; 83735; 84484; 85025; 85610; 85730; 71046; 99285; 96374; 96375; 96361 ×2; J1200; J2930

== ENCOUNTER 2019-09-19 12:53 | Emergency (ER) | payer MEDICARE, OTHER ==
[2019-09-19 13:03] VITALS: RESP 18
--- NOTE | 2019-09-19 13:19 | ED ---
General Adult HPI - General Source: patient, family, EMS Mode of arrival: EMS Limitations: no limitations <Leonora Johnston - Last Filed: 09/19/19 13:57> <Eitan Avendano - Last Filed: 09/19/19 14:00> - General Chief complaint: Back Pain/Injury Stated complaint: Back pain Time Seen by Provider: 09/19/19 13:02 - History of Present Illness Initial comments: Patient is a 69-year-old male, with history of OPCA, presenting to the emergency Department with complaints of left sided pain after falling 5 days ago. Patient can normally lift himself up from a seated position to transfer to a wheelchair or a lift chair or to a standing position however patient hasn't not been able to do this since the fall. Patient states he was in the bathroom and fell to the left side hitting his left side of his ribs on the bathtub. He denies hitting his head. Patient states he hit his left elbow as well as the left knee a little bit. Patient was able to ambulate to the restroom a few days ago. Patient's is here with him now and is helping to provide the history. Patient's states that he does fall frequently secondary to his history. Patient's is also concerned that patient may have a UTI as he has been having a lot more accidents lately. This is common for the patient however the last 1-2 weeks is been more frequent. Patient denies any fever, chills, abdominal pain, back pain. He denies any other complaints from this fall. Upon arrival to the ER, his vital signs are stable. (Leonora Johnston) - Related Data Home Medications Medication Instructions Recorded Confirmed Atorvastatin [Lipitor] 20 mg PO HS 06/18/15 02/16/19 Cholecalciferol [Vitamin D3 (25 1,000 unit PO HS 12/21/18 02/16/19 Mcg = 1000 Iu)] Cinnamon Bark [Cinnamon] 500 mg PO HS 02/16/19 02/16/19 Vitamin E (Dl,Tocopheryl Acet) 400 unit PO HS 02/16/19 02/16/19 [Vitamin E] Previous Rx's Medication Instructions Recorded Doxycycline [Vibramycin] 100 mg PO BID #14 cap 02/16/19 Mupirocin 2% Oint [Bactroban 2% 1 applic TOPICAL TID #60 gm 02/16/19 Oint] predniSONE 50 mg PO DAILY #5 tablet 02/16/19 Cephalexin [Keflex] 500 mg PO Q6HR 7 Days #28 cap 09/19/19 Allergies Allergy/AdvReac Type Severity Reaction Status Date / Time No Known Allergies Allergy Verified 02/16/19 10:33 Review of Systems ROS Other: All systems not noted in ROS Statement are negative. <Leonora Johnston - Last Filed: 09/19/19 13:57> ROS Other: All systems not noted in ROS Statement are negative. <Eitan Avendano - Last Filed: 09/19/19 14:00> ROS Statement: Those systems with pertinent positive or pertinent negative responses have been documented in the HPI. 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), very mild strokes, possible mild [place] (unknown when) History of Any Multi-Drug Resistant Organisms: None Reported Past Surgical History: Heart Catheterization With Stent Additional Past Surgical History / Comment(s): Dr Kumar did stent approx 8 years ago Past Anesthesia/Blood Transfusion Reactions: No Reported Reaction Date of Last Stent Placement:: 2007 Past Psychological History: No Psychological Hx Reported Smoking Status: Never smoker Past Alcohol Use History: None Reported Past Drug Use History: None Reported - Past Family History Father Family Medical History: Unable to Obtain <Leonora Johnston - Last Filed: 09/19/19 13:57> General Exam Limitations: no limitations <Leonora Johnston - Last Filed: 09/19/19 13:57> - General Exam Comments Initial Comments: GENERAL: Well-appearing, well-nourished and in no acute distress. HEAD: Atraumatic, normocephalic. EYES: Pupils equal round and reactive to light, extraocular movements intact, sclera anicteric, conjunctiva are normal. ENT: TMs normal, nares patent, oropharynx clear without exudates. Moist mucous membranes. NECK: Normal range of motion, supple without lymphadenopathy or JVD. LUNGS: Breath sounds clear to auscultation bilaterally and equal. No wheezes rales or rhonchi. Very tender to palpation of the left sided ribs, no deformity or bruising seen. HEART: Regular rate and rhythm without murmurs, rubs or gallops. ABDOMEN: Soft, nontender, normoactive bowel sounds. No guarding, no rebound. No masses appreciated. : Deferred EXTREMITIES: Mild pain with palpation of the left knee, full range of motion, no swelling or deformity seen. No bruising of the left knee. Patient has full range of motion of left elbow, no pain with palpation. No bruising seen. No pitting or edema. NEUROLOGICAL: Hx of OPCA PSYCH: Normal mood, normal affect. SKIN: Warm, Dry, normal turgor, no rashes or lesions noted. (Leonora Johnston) Course <Eitan Avendano - Last Filed: 09/19/19 14:00> Vital Signs 09/19/19 12:55 Temperature 97.8 F Pulse Rate 91 Respiratory 18 Rate Blood Pressure 161/87 O2 Sat by Pulse 98 Oximetry - Reevaluation(s) Reevaluation #1: 09/19/19 14:00 PA supervision: I proceeded [id number] evaluation the patient he did fall days ago and complained of pain to the back he does have evidence of a posterior ri ght rib fracture. Additionally there is evidence a UTI we placed on antibiotics the case was discussed with the caregiver. I do agree with the assessment and plan (Eitan Avendano) Medical Decision Making - Lab Data Lab Results 09/19/19 Range/Units 13:30 Urine Color Yellow Urine Appearance Clear (Clear) Urine pH 7.0 (5.0-8.0) Ur Specific [place] 1.020 (1.001-1.035) Urine Protein Negative (Negative) Urine Glucose (UA) Negative (Negative) Urine Ketones Negative (Negative) Urine Blood Negative (Negative) Urine Nitrite Negative (Negative) Urine Bilirubin Negative (Negative) Urine Urobilinogen <2.0 (<2.0) mg/dL Ur Leukocyte Esterase Moderate H (Negative) Urine RBC 4 (0-5) /hpf Urine WBC 36 H (0-5) /hpf Ur Squamous Epith Cells <1 (0-4) /hpf Urine Bacteria Many H (None) /hpf Urine Mucus Rare H (None) /hpf Disposition Is patient prescribed a controlled substance at d/c from ED?: No <Leonora Johnston - Last Filed: 09/19/19 13:57> <Eitan Avendano - Last Filed: 09/19/19 14:00> Clinical Impression: Fracture of rib of left side, UTI (urinary tract infection), Fall Disposition: HOME SELF-CARE Condition: Stable Instructions (If sedation given, give patient instructions): Urinary Tract Infection in Men (ED), Rib Fracture (ED) Additional Instructions: Please return to the Emergency Department if symptoms worsen or any other concerns. Take antibiotic as prescribed. Use incentive spirometer as discussed. Follow up with PCP. Prescriptions: Cephalexin [Keflex] 500 mg PO Q6HR 7 Days #28 cap Referrals: [facility],Clinic [Primary Care Provider] - 1-2 days
--- NOTE | 2019-09-19 13:43 | XR ---
EXAMINATION TYPE: PA chest and left rib series DATE OF EXAM: 09/19/2019 Comparison: 02/16/2019 Clinical History: 69-year-old male fall, pain Findings: Heart normal size. Aorta and pulmonary vasculature within normal limits. Mild interstitial prominence is unchanged. Bands of atelectasis at the left base. No pneumothorax or pleural effusion seen. There is a fracture of the 10th posterior left rib with 5 mm of displacement. Impression: Mildly displaced fracture of the posterior left 10th rib with 5 mm of displacement. Prominent bands o f atelectasis at the left base.
[2019-09-19 13:44] LABS: Appearance,Urine Clear (Clear); Bacteria,Urine Many /hpf; Bilirubin,Urine Negative (Negative); Blood,Urine Negative (Negative); Color,Urine Yellow; Glucose,Urine (UA) Negative (Negative); Ketones,Urine Negative (Negative); Leukocyte Esterase,Urine Moderate (Negative); Mucus,Urine Rare /hpf; Nitrite,Urine Negative (Negative); Protein,Urine Negative (Negative); RBC,Urine 4 /hpf (0-5); Squamous Epithelial Cell,Urine <1 /hpf (0-4); Urobilinogen,Urine <2.0 mg/dL (<2.0); WBC,Urine 36 /hpf (0-5)
[2019-09-19] MEDS: cefTRIAXone 1,000 MG VIAL (IM USE) IM STA (14:08)
[2019-09-19 14:23] VITALS: BP 156/78; PULSE 83; TEMP 97.7
== END 2019-09-19 14:23 | disposition home or self-care (01) ==
LOC: EC 12:53
DX: S22.32XA Fracture of one rib, left side, initial encounter for closed fracture (principal); N39.0 Urinary tract infection, site not specified; M25.562 Pain in left knee; Z79.899 Other long term (current) drug therapy; Z86.73 Personal history of transient ischemic attack (TIA), and cerebral infarction without residual deficits; Z95.5 Presence of coronary angioplasty implant and graft; W19.XXXA Unspecified fall, initial encounter
CPT/HCPCS: 81001; 87077; 87086; 87186; 96372; 99284

== ENCOUNTER 2020-09-15 15:27 | Emergency (ER) | payer OTHER ==
[2020-09-15 15:35] VITALS: RESP 18
--- NOTE | 2020-09-15 16:05 | ED ---
Altered Mental Status HPI - General Chief Complaint: Altered Mental Status Stated Complaint: syncope Time Seen by Provider: 09/15/20 15:50 Source: EMS Mode of arrival: EMS Limitations: no limitations, altered mental status - History of Present Illness Initial Comments: The patient is a 70-year-old male with past medical history of OPCA who presents emergency Department with reported episode of syncope at home. states this was a witnessed event while she was at home. She states that the patient got out of his recliner and then suddenly "froze and began to fall towards the ground". states herself and the son helped him to the floor. Patient reports this episode lasted for approximately 2-3 minutes were the patient turned diaphoretic and pale but there was no shaking episodes. States the patient does have history of syncopal episodes due to his OPCA. States he typically has speech difficulties, decreased hearing and decreased movement in his extremities at baseline. Patient is difficult to understand due to his condition. reports the patient is currently at his baseline. No loss of bowel or bladder - Related Data Home Medications Medication Instructions Recorded Confirmed Albuterol Sulfate [Proair Hfa] 1 - 2 puff INHALATION [id number] PRN 09/15/20 09/15/20 Atorvastatin [Lipitor] 20 mg PO DIRECTED 09/15/20 Allergies Allergy/AdvReac Type Severity Reaction Status Date / Time No Known Allergies Allergy Verified 09/15/20 17:10 Review of Systems ROS Statement: Those systems with pertinent positive or pertinent negative responses have been documented in the HPI. ROS Other: All systems not noted in ROS Statement are negative. 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), very mild strokes, possible mild NV (unknown when) History of Any Multi-Drug Resistant Organisms: None Reported Past Surgical History: Heart Catheterization With Stent Additional Past Surgical History / Comment(s): Dr Kumar did stent approx 8 years ago Past Anesthesia/Blood Transfusion Reactions: No Reported Reaction Date of Last Stent Placement:: 2007 Past Psychological History: No Psychological Hx Reported Past Alcohol Use History: None Reported Past Drug Use History: None Reported - Past Family History Father Family Medical History: Unable to Obtain General Exam Limitations: language barrier, altered mental status General appearance: alert, in no apparent distress Head exam: Present: atraumatic, normocephalic, normal inspection Eye exam: Present: normal appearance, PERRL, EOMI Pupils: Present: normal accommodation ENT exam: Present: normal exam, normal oropharynx (No biting noted on the side of the tongue.), mucous membranes moist, TM's normal bilaterally, normal ext ernal ear exam Neck exam: Present: normal inspection, full ROM Respiratory exam: Present: normal lung sounds bilaterally. Absent: respiratory distress, wheezes, rales, rhonchi, stridor Cardiovascular Exam: Present: regular rate, normal rhythm, normal heart sounds. Absent: systolic murmur, diastolic murmur GI/Abdominal exam: Present: soft. Absent: distended, tenderness, guarding, rebound, rigid Extremities exam: Present: normal inspection, full ROM, normal capillary refill. Absent: tenderness, pedal edema, joint swelling Back exam: Present: normal inspection, full ROM. Absent: tenderness, CVA tenderness (R), CVA tenderness (L) Neurological exam: Present: alert Psychiatric exam: Present: normal affect, normal mood Skin exam: Present: warm, dry, intact, normal color Course Vital Signs 09/15/20 09/15/20 15:29 19:05 Temperature 98.0 F 98.2 F Pulse Rate 82 87 Respiratory 18 18 Rate Blood Pressure 134/75 127/64 O2 Sat by Pulse 97 95 Oximetry Medical Decision Making - Medical Decision Making The patient is a 70-year-old male with past medical history of OPCA who presents emergency Department with reported episode of syncope at home. - Lab Data Result diagrams: 09/15/20 16:35 09/15/20 16:35 Lab Results 09/15/20 09/15/20 09/15/20 Range/Units 16:35 16:35 16:35 WBC 5.4 (3.8-10.6) k/uL RBC 6.00 H (4.30-5.90) m/uL Hgb 18.5 H (13.0-17.5) gm/dL Hct 53.4 H (39.0-53.0) % MCV 88.9 (80.0-100.0) fL MCH 30.8 (25.0-35.0) pg MCHC 34.7 (31.0-37.0) g/dL RDW 12.9 (11.5-15.5) % Plt Count 115 L (150-450) k/uL MPV 8.5 Neutrophils % 67 % Lymphocytes % 21 % Monocytes % 6 % Eosinophils % 5 % Basophils % 1 % Neutrophils # 3.6 (1.3-7.7) k/uL Lymphocytes # 1.1 (1.0-4.8) k/uL Monocytes # 0.3 (0-1.0) k/uL Eosinophils # 0.3 (0-0.7) k/uL Basophils # 0.0 (0-0.2) k/uL PT 10.8 (9.0-12.0) sec INR 1.0 (<1.2) APTT 20.6 L (22.0-30.0) sec Sodium 139 (137-145) mmol/L Potassium 4.5 (3.5-5.1) mmol/L Chloride 102 (98-107) mmol/L Carbon Dioxide 25 (22-30) mmol/L Anion Gap 12 mmol/L BUN 22 H (9-20) mg/dL Creatinine 0.83 (0.66-1.25) mg/dL Est GFR (CKD-EPI)AfAm >90 (>60 ml/min/1.73 sqM) Est GFR (CKD-EPI)NonAf 89 (>60 ml/min/1.73 sqM) Glucose 103 H (74-99) mg/dL POC Glucose (mg/dL) (75-99) mg/dL POC Glu Art Gallery [employer] ID Calcium 9.8 (8.4-10.2) mg/dL Total Bilirubin 0.6 (0.2-1.3) mg/dL AST 26 (17-59) U/L ALT 20 (4-49) U/L Alkaline Phosphatase 88 (38-126) U/L Troponin I (0.000-0.034) ng/mL Total Protein 7.1 (6.3-8.2) g/dL Albumin 4.4 (3.5-5.0) g/dL Urine Color Urine Appearance (Clear) Urine pH (5.0-8.0) Ur Specific Mobile (1.001-1.035) Urine Protein (Negative) Urine Glucose (UA) (Negative) Urine Ketones (Negative) Urine Blood (Negative) Urine Nitrite (Negative) Urine Bilirubin (Negative) Urine Urobilinogen (<2.0) mg/dL Ur Leukocyte Esterase (Negative) Urine RBC (0-5) /hpf Urine WBC (0-5) /hpf Urine Bacteria (None) /hpf Urine Mucus (None) /hpf Urine Opiates Screen (NotDetected) Ur Oxycodone Screen (NotDetected) Urine Methadone Screen (NotDetected) Ur Propoxyphene Screen (NotDetected) Ur Barbiturates Screen (NotDetected) U Tricyclic Antidepress (NotDetected) Ur Phencyclidine Scrn (NotDetected) Ur Amphetamines Screen (NotDetected) U Methamphetamines Scrn (NotDetected) U Benzodiazepines Scrn (NotDetected) Urine Cocaine Screen (NotDetected) U Marijuana (THC) Screen (NotDetected) 09/15/20 09/15/20 09/15/20 Range/Units 16:35 16:40 18:09 WBC (3.8-10.6) k/uL RBC (4.30-5.90) m/uL Hgb (13.0-17.5) gm/dL Hct (39.0-53.0) % MCV (80.0-100.0) fL MCH (25.0-35.0) pg MCHC (31.0-37.0) g/dL RDW (11.5-15.5) % Plt Count (150-450) k/uL MPV Neutrophils % % Lymphocytes % % Monocytes % % Eosinophils % % Basophils % % Neutrophils # (1.3-7.7) k/uL Lymphocytes # (1.0-4.8) k/uL Monocytes # (0-1.0) k/uL Eosinophils # (0-0.7) k/uL Basophils # (0-0.2) k/uL PT (9.0-12.0) sec INR (<1.2) APTT (22.0-30.0) sec Sodium (137-145) mmol/L Potassium (3.5-5.1) mmol/L Chloride (98-107) mmol/L Carbon Dioxide (22-30) mmol/L Anion Gap mmol/L BUN (9-20) mg/dL Creatinine (0.66-1.25) mg/dL Est GFR (CKD-EPI)AfAm (>60 ml/min/1.73 sqM) Est GFR (CKD-EPI)NonAf (>60 ml/min/1.73 sqM) Glucose (74-99) mg/dL POC Glucose (mg/dL) 103 H (75-99) mg/dL POC Glu Art Gallery Director ID Em Siddiqui Calcium (8.4-10.2) mg/dL Total Bilirubin (0.2-1.3) mg/dL AST (17-59) U/L ALT (4-49) U/L Alkaline Phosphatase (38-126) U/L Troponin I <0.012 (0.000-0.034) ng/mL Total Protein (6.3-8.2) g/dL Albumin (3.5-5.0) g/dL Urine Color Yellow Urine Appearance Clear (Clear) Urine pH 5.5 (5.0-8.0) Ur Specific Mobile 1.017 (1.001-1.035) Urine Protein Negative (Negative) Urine Glucose (UA) Negative (Negative) Urine Ketones 2+ H (Negative) Urine Blood Negative (Negative) Urine Nitrite Positive (Negative) Urine Bilirubin Negative (Negative) Urine Urobilinogen <2.0 (<2.0) mg/dL Ur Leukocyte Esterase Small H (Negative) Urine RBC 1 (0-5) /hpf Urine WBC 17 H (0-5) /hpf Urine Bacteria Many H (None) /hpf Urine Mucus Rare H (None) /hpf Urine Opiates Screen Not Detected (NotDetected) Ur Oxycodone Screen Not Detected (NotDetected) Urine Methadone Screen Not Detected (NotDetected) Ur Propoxyphene Screen Not Detected (NotDetected) Ur Barbiturates Screen Not Detected (NotDetected) U Tricyclic Antidepress Not Detected (NotDetected) Ur Phencyclidine Scrn Not Detected (NotDetected) Ur Amphetamines Screen Not Detected (NotDetected) U Methamphetamines Scrn Not Detected (NotDetected) U Benzodiazepines Scrn Not Detected (NotDetected) Urine Cocaine Screen Not Detected (NotDetected) U Marijuana (THC) Screen Not Detected (NotDetected) Disposition Clinical Impression: Dehydration, Syncopal episodes Disposition: HOME SELF-CARE Condition: Stable Instructions (If sedation given, give patient instructions): Dehydration (ED) Additional Instructions: Drink plenty of fluids. Follow with her primary care physician. Return to emergency department if symptoms worsen. Is patient prescribed a controlled substance at d/c from ED?: No Referrals: [facility],Clinic [Primary Care Provider] - 1-2 days Time of Disposition: 18:57
[2020-09-15 16:41] LABS: Glucose,Whole Blood 103 mg/dL (75-99)
[2020-09-15 16:57] LABS: Basophils % (A) 1 %; Eosinophils # (A) 0.3 k/uL (0-0.7); Eosinophils % (A) 5 %; HCT 53.4 % (39.0-53.0); HGB 18.5 gm/dL (13.0-17.5); Lymphocytes # (A) 1.1 k/uL (1.0-4.8); Lymphocytes % (A) 21 %; MCH 30.8 pg (25.0-35.0); MCHC 34.7 g/dL (31.0-37.0); MCV 88.9 fL (80.0-100.0); Mean Platelet Volume 8.5; Monocytes # (A) 0.3 k/uL (0-1.0); Monocytes % (A) 6 %; Neutrophils # (A) 3.6 k/uL (1.3-7.7); Neutrophils % (A) 67 %; Platelet Count 115 k/uL (150-450); RDW 12.9 % (11.5-15.5); WBC 5.4 k/uL (3.8-10.6)
[2020-09-15 17:11] LABS: ALT 20 U/L (4-49); AST 26 U/L (17-59); African American GFR (CKD) >90 (>60 ml/min/1.73 sqM); Albumin 4.4 g/dL (3.5-5.0); Alkaline Phosphatase 88 U/L (38-126); Anion Gap 12 mmol/L; Blood Urea Nitrogen 22 mg/dL (9-20); Calcium 9.8 mg/dL (8.4-10.2); Carbon Dioxide 25 mmol/L (22-30); Chloride 102 mmol/L (98-107); Glucose 103 mg/dL (74-99); Non-African American GFR(CKD) 89 (>60 ml/min/1.73 sqM); Potassium 4.5 mmol/L (3.5-5.1); Sodium 139 mmol/L (137-145); Total Bilirubin 0.6 mg/dL (0.2-1.3); Total Protein 7.1 g/dL (6.3-8.2)
[2020-09-15 17:23] LABS: Prothrombin Time 10.8 sec (9.0-12.0)
--- NOTE | 2020-09-15 17:23 | CT ---
EXAMINATION TYPE: CT brain wo con DATE OF EXAM: 09/15/2020 COMPARISON: 12/23/2018 HISTORY: Altered mental status. Syncopal episode. CT DLP: 1143.4 mGycm Automated exposure control for dose reduction was used. There is cerebral cortical atrophy. There is no mass effect nor midline shift. There is no sign of in tracranial hemorrhage. There is more noticeable atrophy involving the cerebellum. Sella turcica is in tact. Calvarium is intact. Skull base appears normal. IMPRESSION: Cerebral atrophy with more significant involvement of the cerebellum. No acute intracranial abnormali ty. No change.
[2020-09-15 17:28] LABS: Partial Thromboplastin Time 20.6 sec (22.0-30.0)
--- NOTE | 2020-09-15 17:53 | XR ---
EXAMINATION TYPE: XR chest 2V DATE OF EXAM: 09/15/2020 COMPARISON: NONE HISTORY: Fall. Pain. TECHNIQUE: 2 views FINDINGS: Heart and mediastinum are normal. Lungs are clear of infiltrate. There is no heart failure. There are no hilar masses. There is some spurring in the thoracic spine. IMPRESSION: No active cardiopulmonary disease. Normal heart. There is clearing of the atelectasis lef t lung base compared to old exam.
[2020-09-15 18:20] LABS: Appearance,Urine Clear (Clear); Bacteria,Urine Many /hpf; Bilirubin,Urine Negative (Negative); Blood,Urine Negative (Negative); Color,Urine Yellow; Glucose,Urine (UA) Negative (Negative); Ketones,Urine 2+ (Negative); Leukocyte Esterase,Urine Small (Negative); Mucus,Urine Rare /hpf; Nitrite,Urine Positive (Negative); PH, Urine 5.5 (5.0-8.0); Protein,Urine Negative (Negative); RBC,Urine 1 /hpf (0-5); Specific Gravity,Urine 1.017 (1.001-1.035); Urobilinogen,Urine <2.0 mg/dL (<2.0); WBC,Urine 17 /hpf (0-5)
[2020-09-15 18:28] LABS: Amphetamine Screen,Urine Not Detected (NotDetected); Barbiturate Screen,Urine Not Detected (NotDetected); Benzodiazepines Screen,Urine Not Detected (NotDetected); Cocaine Screen,Urine Not Detected (NotDetected); Methadone Screen, Urine Not Detected (NotDetected); Opiate Screen,Urine Not Detected (NotDetected); Oxycodone Screen, Urine Not Detected (NotDetected); Phencyclidine Screen,Urine Not Detected (NotDetected); Tricyclic Antidepressant,Urine Not Detected (NotDetected); Urn Cannabinoid Scrn Not Detected (NotDetected)
[2020-09-15] MEDS ORDERED: SODIUM CHLORIDE 0.9% 1,000 ML IV STA (18:40)
[2020-09-15 19:06] VITALS: BP 127/64; PULSE 87; TEMP 98.2
== END 2020-09-15 19:55 | disposition home or self-care (01) ==
LOC: EC 15:27
DX: E86.0 Dehydration (principal); R55 Syncope and collapse; R41.82 Altered mental status, unspecified; J45.909 Unspecified asthma, uncomplicated; M19.90 Unspecified osteoarthritis, unspecified site; Z86.73 Personal history of transient ischemic attack (TIA), and cerebral infarction without residual deficits
CPT/HCPCS: 36415; 70450; 71046; 80053; 80306; 81001; 84484; 85025; 85610; 85730; 87086; 93005; 99285

== ENCOUNTER 2020-11-10 13:44 | Inpatient (IN) | payer OTHER, MEDICARE ==
[2020-11-11 12:13] VITALS: BMI 25.9
[2020-11-13 03:24] VITALS: RESP 18
[2020-11-13 08:08] VITALS: BP 124/80; PULSE 85; TEMP 98.3
== END 2020-11-13 15:09 | DRG 871 ==
LOC: EC 13:44 → 4SSUR 15:43
PROVIDERS: ADMIT Hospitalist; ATTEND Hospitalist
DX: A41.9 Sepsis, unspecified organism (principal); G93.41 Metabolic encephalopathy; G23.8 Other specified degenerative diseases of basal ganglia; N39.0 Urinary tract infection, site not specified; H91.93 Unspecified hearing loss, bilateral; J45.909 Unspecified asthma, uncomplicated; Z86.73 Personal history of transient ischemic attack (TIA), and cerebral infarction without residual deficits; Z20.822 Contact with and (suspected) exposure to COVID-19; M19.90 Unspecified osteoarthritis, unspecified site; Z95.5 Presence of coronary angioplasty implant and graft; Z95.1 Presence of aortocoronary bypass graft; E86.0 Dehydration; G89.4 Chronic pain syndrome; I25.10 Atherosclerotic heart disease of native coronary artery without angina pectoris; Z87.440 Personal history of urinary (tract) infections; I49.3 Ventricular premature depolarization; B96.20 Unspecified Escherichia coli [E. coli] as the cause of diseases classified elsewhere; R63.3 Feeding difficulties; R47.1 Dysarthria and anarthria
CPT/HCPCS: 36415; 70450; 71045; 74230; 80048; 81001; 82607; 82746; 83605; 83735; 84443; 84484; 85025; 85610; 85730; 87040; 87077; 87086; 87186; 87635; 93005; 96360; 99285